=== PATIENT | male | born 1965 | race Caucasian/White ===

== ENCOUNTER → 2016-05-22 | Outpatient (CLI) | payer OTHER ==
[~2016-05-22] MED LIST: AMLODIPINE BESY10 MG PO; AMOXIL500 MG PO; ANTIBIOTIC O500 U/GM TP; ASPIR LOW81 MG PO; AVELOX400 MG PO; BACTRIM DS 8001 TA1 PO; BUMETANIDE1 MG PO; BUPROPION75 MG PO; CEFADROXIL500 MG PO; CIPRO; CIPRO500 MG PO; CYCLOPHOSPHAMID50 M1 PO; DIAZEPAM5 MG; EC NAPROSYN500 MG PO; HYDROCODONE BIT1 T11 PO; KEFLEX500 M1 PO; KEFLEX500 MG PO; LEVAQUIN750 M1 PO; LOPID600 M1 PO; MOTRIN800 MG PO; NAPROSYN500 MG PO; NAPROXEN500 MG PO; NKHM; NKHM PO; NORFLEX100 MG PO; OXYCODONE/APAP1 TA8 PO; PERCOCET 325 MG1 TA2 PO; PERCOCET 325 MG1 TA7; PERCOCET 325 MG1 TA7 PO; PREDNICOT20 MG PO; PREDNISONE10 MG PO; PROVENTIL0.09 MG/A1 INH; Percocet 325 MG1 TAB PO; QVAR0.08 MG/AC INH; SODIUM BICARBO650 MG PO; VICODIN 5/500 505 MG PO; VICODIN 500 MG-1 TAB PO; VICODIN ES 7501 TA1 PO; VITAMIN C500 M4 PO; ZOLOFT100 MG PO
[2016-05-22 10:15] VITALS: BP 132/71
[2016-05-22 10:32] LABS: BASO % 0.6 % (0.0-1.0); EOS # 0.3 10*3/uL (0.0-0.4); EOS % 5.9 % (1.0-4.0); HEMOGLOBIN 10.5 g/dl (14.0-18.0); LYMPH # 1.5 10*3/uL (1.3-4.4); LYMPH % 28.7 % (27.0-41.0); MEAN CELL VOLUME 90.9 fl (80.0-94.0); MEAN CORPUSCULAR HGB 29.8 pg (27.0-31.0); MEAN CORPUSCULAR HGB CONC 32.8 g/dl (33.0-37.0); MEAN PLATELET VOLUME 9.8 fl (9.6-12.3); MONO # 0.4 10*3/uL (0.1-1.0); MONO % 8.2 % (3.0-9.0); NEUT # 2.9 10*3/uL (2.3-7.9); PLATELET COUNT AUTOMATED 157 10*3/uL (130-400); RED BLOOD COUNT 3.52 10*6/uL (4.50-5.90); RED CELL DISTRI WIDTH 14.7 % (0-14.5); WHITE BLOOD COUNT 5.2 10*3/uL (4.8-10.8)
[2016-05-22 10:57] LABS: PHOSPHOROUS 6.6 mg/dL (2.5-4.9); URIC ACID 5.5 mg/dL (3.5-7.2)
== END | disposition home or self-care (01) ==
LOC: LAB 10:07
PROVIDERS: Internal Medicine Nephrology
DX: I12.9 Hypertensive chronic kidney disease with stage 1 through stage 4 chronic kidney disease, or unspecified chronic kidney disease (principal); N18.5 Chronic kidney disease, stage 5; D64.9 Anemia, unspecified; N17.9 Acute kidney failure, unspecified

== ENCOUNTER → 2016-10-26 | Outpatient (CLI) | payer MEDICARE, MEDICAID | END | disposition home or self-care (01) | LOC: CT 10-05 11:00 | DX: J98.11 Atelectasis (principal); R91.1 Solitary pulmonary nodule; I10 Essential (primary) hypertension; Z87.891 Personal history of nicotine dependence ==

== ENCOUNTER 2017-01-11 09:22 | Inpatient (IN) | payer MEDICARE, MEDICAID ==
[~2017-01-11] VITALS: Ht 195.5 cm; Wt 118.4 kg
[2017-01-11 09:25] VITALS: BP 156/80
[2017-01-11 09:49] LABS: BASO % 0.4 % (0.0-1.0); EOS # 0.3 10*3/uL (0.0-0.4); EOS % 4.8 % (1.0-4.0); HEMATOCRIT 35.1 % (42.0-52.0); HEMOGLOBIN 11.3 g/dl (14.0-18.0); LYMPH # 1.5 10*3/uL (1.3-4.4); LYMPH % 22.8 % (27.0-41.0); MEAN CORPUSCULAR HGB 31.2 pg (27.0-31.0); MEAN CORPUSCULAR HGB CONC 32.2 g/dl (33.0-37.0); MONO # 0.6 10*3/uL (0.1-1.0); MONO % 8.5 % (3.0-9.0); NEUT # 4.2 10*3/uL (2.3-7.9); NEUT % 63.1 % (47.0-73.0); PLATELET COUNT AUTOMATED 192 10*3/uL (130-400); RED BLOOD COUNT 3.62 10*6/uL (4.50-5.90); RED CELL DISTRI WIDTH 14.9 % (0-14.5); WHITE BLOOD COUNT 6.7 10*3/uL (4.8-10.8)
[2017-01-11 09:51] LABS: ABG HCO3 17.2 mmol/l (22-26); ABG O2 SATURATION 83.2 % (95-97); ARTERIAL BLOOD GAS PCO2 39.4 mmHg (35-45); ARTERIAL BLOOD GAS PH 7.261 (7.35-7.45); ARTERIAL BLOOD GAS PO2 53.5 mmHg (80-90)
[2017-01-11 09:53] LABS: ABG BASE EXCESS -8.9 mmol/L (-2.0-2.0)
[2017-01-11 10:06] LABS: ALBUMIN 3.5 gm/dl (3.1-4.5); ALKALINE PHOSPHATASE 86 U/L (45-117); BUN 77 mg/dl (7-24); CHLORIDE 100 mmol/L (98-107); CKMB 2.4 ng/ml (0.5-3.6); CPK 149 U/L (39-308); LIPASE 165 U/L (73-393); MAGNESIUM 2.8 mg/dL (1.5-2.1); SGOT/AST 11 IU/L (3-35); SGPT/ALT 12 U/L (12-78); SODIUM 138 mmol/L (136-145); TOTAL PROTEIN 8.7 gm/dL (6.4-8.2)
[2017-01-11 10:08] LABS: ETHYL ALCOHOL < 3.0 mg/dl (<3)
[2017-01-11 10:10] LABS: POTASSIUM 6.1 mmol/L (3.5-5.1)
--- NOTE | 2017-01-11 10:24 | NUR ---
PT UNWILLING TO TRY TO PROVIDE URINE SPECIMEN. REFUSES CATHETER.
--- NOTE | 2017-01-11 10:25 | NUR ---
PT APPEARS MORE ALERT AND ORIENTED NOW. AFTER SEEING PT'S ABG RESULTS, I REASSESSED HIS POX WHICH WAS 96% ON ROOM AIR ON ARIVAL AND IT IS NOW 79%. PT IS AWAKE AND THE WAVE-FORM IS PERFECT. POX RISES AND DROPS DRAMATICALLY WHILE I WATCH. ALSO, PT'S LEFT ARM IV SITE WAS SARTED BY EMS PROXIMAL TO HIS DIALYSIS SHUNT. HAS MENTIONED SHE MIGHT ORDER A CHEST CT FOR P.E. BUT PT'S RIGHT ARM IS SCARRED IN SUCH A WAY NO IV SITE MAY BE INSERTED WHICH WOULD BE EFFECTIVE FOR P.E. CT.
--- NOTE | 2017-01-11 10:25 | NUR ---
PT'S IV SITE RIGHT ARM IS PATENT AND FLUSHED EASLY WITH 30CC NSS TO TEST BECAUSE PT EXPRESSES TENDERNESS AND JUMPS WHEN THIS SITE IS ACCESSED. SITE IS ASYMPTOMATIC.
[2017-01-11 10:26] LABS: TROPONIN I 0.081 ng/ml (<0.045)
--- NOTE | 2017-01-11 10:45 | NUR ---
PT TO RADIOLOGY.
--- NOTE | 2017-01-11 11:19 | NUR ---
PT REMAINS IN RADIOLOGY.
--- NOTE | 2017-01-11 11:40 | NUR ---
PT REMAINS IN RADIOLOGY.
--- NOTE | 2017-01-11 11:52 | NUR ---
PT RETURNS TO ROOM. NO CHANGE IN CONDITION.
--- NOTE | 2017-01-11 11:58 | NUR ---
PT CONTINUES TO REFUSE CATH SPECIMEN AND DOESN'T NEED TO URINATE.
[2017-01-11 11:59] VITALS: BP 140/82
--- NOTE | 2017-01-11 12:33 | NUR ---
LEVAQUIN INFUSING AT TIME OF ADMISSION
--- NOTE | 2017-01-11 13:47 | NUR ---
A 51, admitted to ICCU, under the services of JAYLIN Warren DO with a diagnosis of SEIZURE/RESP FAILURE. Chief complaint is GRAND MAL SEIZURE WHILE DRIVING. Patient arrived via ambulatory from ER. Monitor applied. Initial assessment completed. Vital signs taken and recorded. JAYLIN WARREN DO notified of admission to the unit. Orders received. See assessment for past medical history, medications and allergies. Patient and/or family oriented to unit. [facility] ICCU visitation policy reviewed. Clothing/patient valuable form completed. YVETTE ATKINSON
[2017-01-11 13:48] LABS: BILIRUBIN NEGATIVE (NEGATIVE); BLOOD 3+ (NEGATIVE); CLARITY CLEAR (CLEAR); COLOR YELLOW (YELLOW); GLUCOSE 1+ (NEGATIVE); KETONE NEGATIVE (NEGATIVE); LEUKO ESTERASE NEGATIVE (NEGATIVE); NITRITE NEGATIVE (NEGATIVE); PH 7.5 (5.0-9.0); UROBILINOGEN 0.2 E.U./dl (0.2-1.0)
[2017-01-11 13:55] LABS: URINE AMPHETAMINES < 1000 (1000ng/ml); URINE BARBITURATES < 200 (200ng/ml); URINE BENZODIAZEPINES < 200 (200ng/ml); URINE CANNABINOIDS (THC) < 50 (50ng/ml); URINE COCAINE > 300 (300ng/ml); URINE METHADONE < 300 (300ng/ml); URINE OPIATES < 300 (300ng/ml)
[2017-01-11 14:02] LABS: URINE PHENCYCLIDINE < 25 (25ng/ml)
[2017-01-11] MEDS ORDERED: DIOVAN160 M2 PO (14:28)
[2017-01-11] MEDS ORDERED: PERCOCET 10-321 EACH PO (14:29)
[2017-01-11] MEDS ORDERED: CALCIUM ACETAT667 MG PO (14:29)
--- NOTE | 2017-01-11 14:31 | NUR ---
MEDS RECONCILED WITH DIRECT CONVERSATION WITH ELVIE CORONADO PHARMACIST
[2017-01-11 14:35] VITALS: BP 172/92
[2017-01-11 14:39] VITALS: BP 160/90
--- NOTE | 2017-01-11 15:20 | NUR ---
DR HERNANDEZ UPDATED ON MEDS, UDS AND NEED TO WAIT UNTIL AFTER DIALYSIS FOR VANCO INFUSION
[2017-01-11 16:00] VITALS: BP 160/90
--- NOTE | 2017-01-11 16:21 | NUR ---
SPOKE WITH RENAL OFFICE X 3, THEY ASSURE ME THAT DR GALLEGOS HAS RECIEVED MESSAGE [facility] CONSULT AND FOR [facility] TO CONTACT HIM DIRECTLY FOR ORDERS, MESSAGE RELAYED TO [facility]
--- NOTE | 2017-01-11 17:10 | NUR ---
SPOKE WITH ADRIANNE FROM DIALYSIS, ADVISED TANOLVIA GALLEGOS HAD CALLED IN AND WANTS HER TO CALL HIM HERSELF FOR ORDERS FOR A TREATMENT TONIGHT
--- NOTE | 2017-01-11 17:44 | NUR ---
DR HERNANDEZ UPDATED ON TRO I
[2017-01-11 20:00] VITALS: BP 135/82
--- NOTE | 2017-01-11 22:23 | NUR ---
24 HR chart check completed.
--- NOTE | 2017-01-11 22:23 | NUR ---
24 HR chart check completed.
--- NOTE | 2017-01-11 22:26 | NUR ---
MANUAL BARCODE USED FOR PM MEDS DIALYSIS EQUIP,EMT IS CLUTTERED IN ROOM AND I CAN NOT REQCH THE PT TO SCAN HIS BARCODE
--- NOTE | 2017-01-11 22:27 | NUR ---
PER PT HE IS NOT ON FLUID RESTRICTIONS
--- NOTE | 2017-01-11 22:59 | NUR ---
DR CORREIA UPDATED ON ELEVATED TRO I
[2017-01-12] VITALS: BP 145/65
[2017-01-12 04:00] VITALS: BP 143/77
[2017-01-12 05:32] LABS: BASO % 0.5 % (0.0-1.0); EOS # 0.2 10*3/uL (0.0-0.4); HEMOGLOBIN 9.4 g/dl (14.0-18.0); LYMPH # 1.1 10*3/uL (1.3-4.4); LYMPH % 28.1 % (27.0-41.0); MEAN CORPUSCULAR HGB 31.1 pg (27.0-31.0); MEAN CORPUSCULAR HGB CONC 32.8 g/dl (33.0-37.0); MEAN PLATELET VOLUME 9.4 fl (9.6-12.3); MONO # 0.4 10*3/uL (0.1-1.0); MONO % 10.1 % (3.0-9.0); NEUT # 2.3 10*3/uL (2.3-7.9); PLATELET COUNT AUTOMATED 152 10*3/uL (130-400); RED BLOOD COUNT 3.02 10*6/uL (4.50-5.90); RED CELL DISTRI WIDTH 14.6 % (0-14.5)
[2017-01-12 05:35] LABS: HEMATOCRIT 28.7 % (42.0-52.0)
[2017-01-12 05:45] LABS: ALBUMIN 2.8 gm/dl (3.1-4.5); CREATININE 8.28 mg/dL (0.70-1.30); FREE T4 1.03 ng/dl (0.76-1.46); MAGNESIUM 2.3 mg/dL (1.5-2.1); PHOSPHOROUS 6.9 mg/dL (2.5-4.9)
[2017-01-12 05:49] LABS: THYROID STIM HORMONE (HS) 1.78 uIU/ml (0.358-4.75)
[2017-01-12 05:52] LABS: POTASSIUM 4.5 mmol/L (3.5-5.1)
[2017-01-12 05:53] LABS: TROPONIN I 0.14 ng/ml (<0.045)
--- NOTE | 2017-01-12 05:54 | NUR ---
DR. RIOJAS NOTIFIED OF CRITICAL TROPONIN. NO NEW ORDERS RECEIVED.
[2017-01-12 07:36] LABS: VITAMIN D, 25-HYDROXY 30.3 ng/mL (30-100)
[2017-01-12 07:43] VITALS: BP 137/74
--- NOTE | 2017-01-12 07:48 | NUR ---
Trung at [facility] was contacted for updated med list.
--- NOTE | 2017-01-12 08:40 | NUR ---
Awakened for VS and breakfast. took breakfast well and then back to sleep. I spoke w/ Trung at the dislysis clinic and he stated that Dr. Roy wanted to see pt. prior to Dialysis this AM. Awaiting her arrival.
[2017-01-12] MEDS ORDERED: ASPIRIN ADULT L81 M2 PO (09:55)
[2017-01-12] MEDS ORDERED: FENOFIBRATE54 MG PO (09:56)
[2017-01-12] MEDS ORDERED: LOPID600 M1 PO (10:04)
[2017-01-12] MEDS ORDERED: VITAMIN C500 M4 PO (10:06)
[2017-01-12] MEDS ORDERED: RENAL-VITE TAB0.8 MG PO (10:07)
[2017-01-12] MEDS ORDERED: ARANESP40 MCG/1 M IV (10:09)
[2017-01-12] MEDS ORDERED: SILDENAFIL20 M1 PO (10:12)
--- NOTE | 2017-01-12 10:14 | NUR ---
Med list is updated per dialysis list provided. however pt. is known to be non-compliant .
--- NOTE | 2017-01-12 10:48 | NUR ---
cyber ops planner in to see patient for discharge assessment. Currently with Dialysis, will check back later.
[2017-01-12 11:55] VITALS: BP 156/95
--- NOTE | 2017-01-12 15:43 | NUR ---
IV LA dc'd post dialysis re-start to . then transferred to [facility] via w/c w/ belongings. Report to Kaia.
[2017-01-12 16:00] VITALS: BP 155/53
[2017-01-12 20:00] VITALS: BP 160/94
[2017-01-13] VITALS: BP 157/70
--- NOTE | 2017-01-13 01:35 | NUR ---
24 HR chart check completed.
[2017-01-13 06:22] LABS: BASO % 0.5 % (0.0-1.0); EOS # 0.2 10*3/uL (0.0-0.4); EOS % 4.3 % (1.0-4.0); HEMATOCRIT 27.9 % (42.0-52.0); LYMPH # 1.3 10*3/uL (1.3-4.4); LYMPH % 33.1 % (27.0-41.0); MEAN CELL VOLUME 96.2 fl (80.0-94.0); MEAN CORPUSCULAR HGB CONC 32.3 g/dl (33.0-37.0); MEAN PLATELET VOLUME 9.6 fl (9.6-12.3); MONO # 0.6 10*3/uL (0.1-1.0); MONO % 14.1 % (3.0-9.0); NEUT # 1.9 10*3/uL (2.3-7.9); NEUT % 47.2 % (47.0-73.0); PLATELET COUNT AUTOMATED 137 10*3/uL (130-400); RED CELL DISTRI WIDTH 14.5 % (0-14.5)
[2017-01-13 06:47] LABS: ALBUMIN 2.7 gm/dl (3.1-4.5); CKMB 1.3 ng/ml (0.5-3.6); CREATININE 7.38 mg/dL (0.70-1.30); PHOSPHOROUS 5.7 mg/dL (2.5-4.9); POTASSIUM 4.8 mmol/L (3.5-5.1)
[2017-01-13 08:00] VITALS: BP 164/86
--- NOTE | 2017-01-13 09:24 | NUR ---
PT TOOK HEART MONITOR OFF AND IV OUT. HE STATED HE IS LEAVING AND HE WENT TO GET IN THE SHOWER AT THIS TIME. NOTIFIED DR ESCALANTE
[2017-01-13] MEDS ORDERED: DOXYCYCLINE MO100 M1 PO (11:18)
--- NOTE | 2017-01-13 11:42 | NUR ---
PT DISCHARGED AT THIS TIME. REMOVED IV AND PLACED PRESSURE DRESSING. VERBALIZED UNDERSTANDING OF DISCHARGE INSTRUCTIONS. HEART MONITOR RETURNED TO FLOOR.
== END 2017-01-13 11:42 | disposition home or self-care (01) | DRG 871 ==
LOC: ED 09:22 → EDHOLD 12:20 → ICCU 12:20 → 4E 01-12 15:23
PROVIDERS: Family Medicine; Internal Medicine; Internal Medicine Hospice and Palliative Medicine; ADMIT Internal Medicine
PROC: 5A1D60Z (ICD-10-PCS; principal; 2017-01-12)
DX: A41.9 Sepsis, unspecified organism (principal); N18.6 End stage renal disease; J96.01 Acute respiratory failure with hypoxia; E87.2 Acidosis; J18.9 Pneumonia, unspecified organism; I12.0 Hypertensive chronic kidney disease with stage 5 chronic kidney disease or end stage renal disease; E44.0 Moderate protein-calorie malnutrition; F17.200 Nicotine dependence, unspecified, uncomplicated; F12.10 Cannabis abuse, uncomplicated; G40.409 Other generalized epilepsy and epileptic syndromes, not intractable, without status epilepticus; E87.5 Hyperkalemia; E83.41 Hypermagnesemia; E83.51 Hypocalcemia; F14.10 Cocaine abuse, uncomplicated; D63.1 Anemia in chronic kidney disease; J40 Bronchitis, not specified as acute or chronic; E83.39 Other disorders of phosphorus metabolism; Z91.19 Patient's noncompliance with other medical treatment and regimen; Z82.49 Family history of ischemic heart disease and other diseases of the circulatory system; Z71.6 Tobacco abuse counseling; Z79.82 Long term (current) use of aspirin; Z79.1 Long term (current) use of non-steroidal anti-inflammatories (NSAID); Z79.899 Other long term (current) drug therapy; Z99.2 Dependence on renal dialysis; Z68.30 Body mass index [BMI] 30.0-30.9, adult

== ENCOUNTER 2017-02-15 08:22 | Inpatient (IN) | payer MEDICARE, MEDICAID ==
[2017-02-15] VITALS (7 sets, daily range): BP systolic 126–169; BP diastolic 69–86
[~2017-02-15] VITALS: Ht 193 cm; Wt 114.1 kg
[~2017-02-15 08:22] MED LIST changes: +ARANESP40 MCG/1 M IV; +ASPIRIN ADULT L81 M2 PO; +CALCIUM ACETAT667 MG PO; +DIOVAN160 M2 PO; +DOXYCYCLINE MO100 M1 PO; +FENOFIBRATE54 MG PO; +PERCOCET 10-321 EACH PO; +RENAL-VITE TAB0.8 MG PO; +SILDENAFIL20 M1 PO
[2017-02-15] MEDS ORDERED: SILDENAFIL20 M1 PO (08:38)
[2017-02-15] MEDS ORDERED: AMLODIPINE BESYL5 MG PO (08:38)
[2017-02-15 08:52] LABS: BASO % 0.6 % (0.0-1.0); EOS # 0.2 10*3/uL (0.0-0.4); EOS % 3.1 % (1.0-4.0); HEMATOCRIT 33.6 % (42.0-52.0); HEMOGLOBIN 10.8 g/dl (14.0-18.0); LYMPH # 1.2 10*3/uL (1.3-4.4); LYMPH % 17.4 % (27.0-41.0); MEAN CELL VOLUME 99.7 fl (80.0-94.0); MEAN CORPUSCULAR HGB CONC 32.1 g/dl (33.0-37.0); MEAN PLATELET VOLUME 9.3 fl (9.6-12.3); MONO # 0.6 10*3/uL (0.1-1.0); MONO % 7.8 % (3.0-9.0); NEUT % 70.7 % (47.0-73.0); PLATELET COUNT AUTOMATED 194 10*3/uL (130-400); RED BLOOD COUNT 3.37 10*6/uL (4.50-5.90); WHITE BLOOD COUNT 7.1 10*3/uL (4.8-10.8)
[2017-02-15 09:01] LABS: ACT PARTIAL THROMBO TIME 24.7 SECONDS (20.8-31.5)
[2017-02-15 09:16] LABS: BILIRUBIN NEGATIVE (NEGATIVE); BLOOD 2+ (NEGATIVE); CLARITY CLEAR (CLEAR); COLOR YELLOW (YELLOW); GLUCOSE 1+ (NEGATIVE); KETONE NEGATIVE (NEGATIVE); LEUKO ESTERASE NEGATIVE (NEGATIVE); NITRITE NEGATIVE (NEGATIVE); UROBILINOGEN 0.2 E.U./dl (0.2-1.0)
[2017-02-15 09:20] LABS: ALBUMIN 3.3 gm/dl (3.1-4.5); CREATININE 11.3 mg/dL (0.70-1.30); MAGNESIUM 2.5 mg/dL (1.5-2.1); TOTAL PROTEIN 8.3 gm/dL (6.4-8.2)
[2017-02-15 09:24] LABS: URINE AMPHETAMINES < 1000 (1000ng/ml); URINE BARBITURATES < 200 (200ng/ml); URINE BENZODIAZEPINES < 200 (200ng/ml); URINE CANNABINOIDS (THC) < 50 (50ng/ml); URINE COCAINE > 300 (300ng/ml); URINE METHADONE < 300 (300ng/ml); URINE OPIATES < 300 (300ng/ml)
[2017-02-15 09:27] LABS: POTASSIUM 6.6 mmol/L (3.5-5.1); TROPONIN I 0.088 ng/ml (<0.045)
[2017-02-15 09:28] LABS: URINE PHENCYCLIDINE < 25 (25ng/ml)
[2017-02-15 15:46] LABS: BASO # 0.1 10*3/uL (0.0-0.1); BASO % 0.9 % (0.0-1.0); EOS # 0.2 10*3/uL (0.0-0.4); EOS % 2.7 % (1.0-4.0); HEMATOCRIT 35.5 % (42.0-52.0); HEMOGLOBIN 11.3 g/dl (14.0-18.0); LYMPH # 1.3 10*3/uL (1.3-4.4); LYMPH % 24.2 % (27.0-41.0); MEAN CELL VOLUME 100.6 fl (80.0-94.0); MEAN CORPUSCULAR HGB CONC 31.8 g/dl (33.0-37.0); MEAN PLATELET VOLUME 9.3 fl (9.6-12.3); MONO # 0.5 10*3/uL (0.1-1.0); NEUT # 3.5 10*3/uL (2.3-7.9); NEUT % 62.8 % (47.0-73.0); PLATELET COUNT AUTOMATED 190 10*3/uL (130-400); RED BLOOD COUNT 3.53 10*6/uL (4.50-5.90); RED CELL DISTRI WIDTH 14.9 % (0-14.5); WHITE BLOOD COUNT 5.5 10*3/uL (4.8-10.8)
[2017-02-15 16:02] LABS: ALBUMIN 3.4 gm/dl (3.1-4.5); CREATININE 11.6 mg/dL (0.70-1.30); PHOSPHOROUS 6.6 mg/dL (2.5-4.9); POTASSIUM 5.9 mmol/L (3.5-5.1)
[2017-02-15 16:59] LABS: URINE AMPHETAMINES < 1000 (1000ng/ml); URINE BARBITURATES < 200 (200ng/ml); URINE BENZODIAZEPINES < 200 (200ng/ml); URINE CANNABINOIDS (THC) < 50 (50ng/ml); URINE COCAINE > 300 (300ng/ml); URINE METHADONE < 300 (300ng/ml); URINE OPIATES < 300 (300ng/ml)
[2017-02-15 17:01] LABS: URINE PHENCYCLIDINE < 25 (25ng/ml)
[2017-02-15 17:55] LABS: BASO % 0.3 % (0.0-1.0); EOS # 0.2 10*3/uL (0.0-0.4); EOS % 2.5 % (1.0-4.0); HEMATOCRIT 31.9 % (42.0-52.0); HEMOGLOBIN 10.3 g/dl (14.0-18.0); LYMPH % 16.9 % (27.0-41.0); MEAN CELL VOLUME 98.8 fl (80.0-94.0); MEAN CORPUSCULAR HGB 31.9 pg (27.0-31.0); MEAN CORPUSCULAR HGB CONC 32.3 g/dl (33.0-37.0); MEAN PLATELET VOLUME 9.4 fl (9.6-12.3); MONO # 0.5 10*3/uL (0.1-1.0); MONO % 8.1 % (3.0-9.0); NEUT # 4.3 10*3/uL (2.3-7.9); NEUT % 71.7 % (47.0-73.0); PLATELET COUNT AUTOMATED 174 10*3/uL (130-400); RED BLOOD COUNT 3.23 10*6/uL (4.50-5.90); RED CELL DISTRI WIDTH 14.9 % (0-14.5)
[2017-02-15 18:11] LABS: CREATININE 11.9 mg/dL (0.70-1.30)
[2017-02-15 18:20] LABS: POTASSIUM 6.3 mmol/L (3.5-5.1); TROPONIN I 0.096 ng/ml (<0.045)
[2017-02-15 23:24] LABS: CREATININE 7.59 mg/dL (0.70-1.30)
[2017-02-15 23:26] LABS: POTASSIUM 3.8 mmol/L (3.5-5.1)
[2017-02-16] VITALS: BP 156/84
[2017-02-16 04:00] VITALS: BP 118/55
[2017-02-16 05:40] LABS: CREATININE 8.33 mg/dL (0.70-1.30); MAGNESIUM 2.4 mg/dL (1.5-2.1); POTASSIUM 4.7 mmol/L (3.5-5.1); TOTAL PROTEIN 7.6 gm/dL (6.4-8.2)
[2017-02-16 05:41] LABS: FREE T4 0.95 ng/dl (0.76-1.46)
[2017-02-16 05:46] LABS: THYROID STIM HORMONE (HS) 1.74 uIU/ml (0.358-4.75)
[2017-02-16 05:58] LABS: BASO % 0.8 % (0.0-1.0); EOS # 0.2 10*3/uL (0.0-0.4); EOS % 3.8 % (1.0-4.0); HEMATOCRIT 32.3 % (42.0-52.0); HEMOGLOBIN 10.5 g/dl (14.0-18.0); LYMPH # 1.6 10*3/uL (1.3-4.4); LYMPH % 31.5 % (27.0-41.0); MEAN CELL VOLUME 100.3 fl (80.0-94.0); MEAN CORPUSCULAR HGB 32.6 pg (27.0-31.0); MEAN CORPUSCULAR HGB CONC 32.5 g/dl (33.0-37.0); MEAN PLATELET VOLUME 9.4 fl (9.6-12.3); MONO # 0.6 10*3/uL (0.1-1.0); MONO % 10.9 % (3.0-9.0); NEUT # 2.7 10*3/uL (2.3-7.9); NEUT % 52.6 % (47.0-73.0); PLATELET COUNT AUTOMATED 175 10*3/uL (130-400); RED BLOOD COUNT 3.22 10*6/uL (4.50-5.90); RED CELL DISTRI WIDTH 14.6 % (0-14.5)
[2017-02-16 06:17] LABS: ACT PARTIAL THROMBO TIME 24.3 SECONDS (20.8-31.5)
[2017-02-16 08:00] VITALS: BP 150/87
== END 2017-02-16 09:26 | disposition home or self-care (01) | DRG 70 ==
LOC: ED 08:22 → EDHOLD 10:21 → 5E 10:21 → ICCU 16:19
PROVIDERS: Emergency Medicine; Family Medicine Adult Medicine; Internal Medicine; Internal Medicine Nephrology; ADMIT Internal Medicine
PROC: 5A1D00Z (ICD-10-PCS; principal; 2017-02-15)
DX: G93.41 Metabolic encephalopathy (principal); N18.6 End stage renal disease; I13.2 Hypertensive heart and chronic kidney disease with heart failure and with stage 5 chronic kidney disease, or end stage renal disease; E87.2 Acidosis; R56.9 Unspecified convulsions; E83.41 Hypermagnesemia; D63.1 Anemia in chronic kidney disease; S00.03XA Contusion of scalp, initial encounter; E87.5 Hyperkalemia; F17.210 Nicotine dependence, cigarettes, uncomplicated; I50.9 Heart failure, unspecified; W18.39XA Other fall on same level, initial encounter; F14.10 Cocaine abuse, uncomplicated; Z99.2 Dependence on renal dialysis; Z82.3 Family history of stroke; Z83.3 Family history of diabetes mellitus; Z82.49 Family history of ischemic heart disease and other diseases of the circulatory system; Z79.82 Long term (current) use of aspirin; Z79.899 Other long term (current) drug therapy; Z71.6 Tobacco abuse counseling; Z91.15 Patient's noncompliance with renal dialysis; Y93.89 Activity, other specified; Y92.89 Other specified places as the place of occurrence of the external cause; Y99.8 Other external cause status

== ENCOUNTER 2017-02-18 18:46 | Emergency (ER) | payer MEDICARE, MEDICAID ==
[~2017-02-18] VITALS: Ht 195.5 cm; Wt 117.9 kg
[~2017-02-18 18:46] MED LIST changes: +AMLODIPINE BESYL5 MG PO
[2017-02-18 19:52] LABS: BASO % 0.5 % (0.0-1.0); EOS # 0.3 10*3/uL (0.0-0.4); EOS % 4.3 % (1.0-4.0); HEMATOCRIT 30.7 % (42.0-52.0); HEMOGLOBIN 10.1 g/dl (14.0-18.0); LYMPH # 1.2 10*3/uL (1.3-4.4); LYMPH % 19.3 % (27.0-41.0); MEAN CELL VOLUME 98.7 fl (80.0-94.0); MEAN CORPUSCULAR HGB 32.5 pg (27.0-31.0); MEAN CORPUSCULAR HGB CONC 32.9 g/dl (33.0-37.0); MEAN PLATELET VOLUME 9.5 fl (9.6-12.3); MONO # 0.6 10*3/uL (0.1-1.0); MONO % 9.3 % (3.0-9.0); NEUT # 4.1 10*3/uL (2.3-7.9); PLATELET COUNT AUTOMATED 162 10*3/uL (130-400); RED BLOOD COUNT 3.11 10*6/uL (4.50-5.90); RED CELL DISTRI WIDTH 14.5 % (0-14.5); WHITE BLOOD COUNT 6.3 10*3/uL (4.8-10.8)
[2017-02-18 20:08] LABS: ALBUMIN 3.3 gm/dl (3.1-4.5); CREATININE 9.61 mg/dL (0.70-1.30); MAGNESIUM 2.1 mg/dL (1.5-2.1); POTASSIUM 4.9 mmol/L (3.5-5.1); TOTAL PROTEIN 8.3 gm/dL (6.4-8.2)
[2017-02-18 21:04] LABS: BILIRUBIN NEGATIVE (NEGATIVE); BLOOD TRACE-LYSED (NEGATIVE); CLARITY CLEAR (CLEAR); COLOR YELLOW (YELLOW); GLUCOSE 1+ (NEGATIVE); KETONE NEGATIVE (NEGATIVE); LEUKO ESTERASE NEGATIVE (NEGATIVE); NITRITE NEGATIVE (NEGATIVE); PH 8.5 (5.0-9.0); SPECIFIC GRAVITY 1.015 (1.005-1.030); UROBILINOGEN 0.2 E.U./dl (0.2-1.0)
[2017-02-18 21:11] LABS: RBC 0-2 rbc/hpf (0-2)
[2017-02-18 21:12] LABS: MUCOUS TRACE
[2017-02-18 21:18] LABS: URINE AMPHETAMINES < 1000 (1000ng/ml); URINE BARBITURATES < 200 (200ng/ml); URINE BENZODIAZEPINES < 200 (200ng/ml); URINE CANNABINOIDS (THC) < 50 (50ng/ml); URINE COCAINE > 300 (300ng/ml); URINE METHADONE < 300 (300ng/ml); URINE OPIATES < 300 (300ng/ml)
[2017-02-18 21:22] LABS: URINE PHENCYCLIDINE < 25 (25ng/ml)
[2017-02-18] MEDS ORDERED: KEFLEX500 M1 PO (22:28)
== END 2017-02-18 23:21 | disposition home or self-care (01) ==
LOC: ED 18:46
PROVIDERS: Emergency Medicine Emergency Medical Services
DX: S20.211A Contusion of right front wall of thorax, initial encounter (principal); S00.81XA Abrasion of other part of head, initial encounter; L08.9 Local infection of the skin and subcutaneous tissue, unspecified; F17.200 Nicotine dependence, unspecified, uncomplicated; F12.10 Cannabis abuse, uncomplicated; F14.10 Cocaine abuse, uncomplicated; I12.0 Hypertensive chronic kidney disease with stage 5 chronic kidney disease or end stage renal disease; N18.5 Chronic kidney disease, stage 5; D63.1 Anemia in chronic kidney disease; Z79.899 Other long term (current) drug therapy; Z99.2 Dependence on renal dialysis; Z79.82 Long term (current) use of aspirin; W01.198A Fall on same level from slipping, tripping and stumbling with subsequent striking against other object, initial encounter; Y93.89 Activity, other specified; Y92.89 Other specified places as the place of occurrence of the external cause; Y99.9 Unspecified external cause status

== ENCOUNTER 2017-03-13 08:42 | Inpatient (IN) | payer MEDICARE ==
[~2017-03-13] VITALS: Ht 195.5 cm; Wt 112.5 kg
[2017-03-13 08:54] VITALS: BP 170/100
[2017-03-13 09:46] LABS: BASO # 0.1 10*3/uL (0.0-0.1); EOS # 0.3 10*3/uL (0.0-0.4); EOS % 4.8 % (1.0-4.0); HEMATOCRIT 36.8 % (42.0-52.0); HEMOGLOBIN 12.1 g/dl (14.0-18.0); LYMPH % 33.9 % (27.0-41.0); MEAN CELL VOLUME 95.8 fl (80.0-94.0); MEAN CORPUSCULAR HGB 31.5 pg (27.0-31.0); MEAN CORPUSCULAR HGB CONC 32.9 g/dl (33.0-37.0); MEAN PLATELET VOLUME 9.7 fl (9.6-12.3); MONO # 0.5 10*3/uL (0.1-1.0); PLATELET COUNT AUTOMATED 152 10*3/uL (130-400); RED BLOOD COUNT 3.84 10*6/uL (4.50-5.90); RED CELL DISTRI WIDTH 13.3 % (0-14.5); WHITE BLOOD COUNT 5.9 10*3/uL (4.8-10.8)
[2017-03-13 10:02] LABS: ALBUMIN 3.4 gm/dl (3.1-4.5); CREATININE 7.96 mg/dL (0.70-1.30); POTASSIUM 5.9 mmol/L (3.5-5.1)
[2017-03-13 10:04] LABS: TROPONIN I 0.072 ng/ml (<0.045)
[2017-03-13 10:27] VITALS: BP 163/103
--- NOTE | 2017-03-13 11:01 | NUR ---
INPATIENT BED ASSIGNMENT HAS BEEN MADE. FLOOR STATES THEY ARE DISCHARGING PT FROM THAT ROOM NOW AND THEY WILL CALL WHEN ROOM IS CLEAN. AXEL PTAEL RN
[2017-03-13 11:12] VITALS: BP 164/95
--- NOTE | 2017-03-13 11:49 | NUR ---
WAITING FOR INPATIENT BED TO BE CLEANED. AXEL PATEL RN
--- NOTE | 2017-03-13 12:45 | NUR ---
A 51, admitted to , under the services of IVANIA Sosa DO with a diagnosis of CHEST PAIN AND HYPERKALEMIA. Chief complaint is CHEST PAIN. Patient arrived via wheel chair from ER. Monitor applied. Initial assessment completed. Vital signs taken and recorded. IVANIA SOSA DO notified of admission to the unit. Orders received. See assessment for past medical history, medications and allergies. Patient and/or family oriented to unit. [facility] visitation policy reviewed. Clothing/patient valuable form completed. JACLYN LIGHT
--- NOTE | 2017-03-13 12:49 | NUR ---
NOTIFIED DR BEAN OF CRITICAL TROPONIN OF 0.063, NO NEW ORDERS.
[2017-03-13 12:53] VITALS: BP 169/95
--- NOTE | 2017-03-13 13:01 | NUR ---
NOTIFIED DR OTT OF NEW CONSULT FOR HYPERKALEMIA, VIA RAPID OUTSOLE STITCHER.
[2017-03-13] MEDS ORDERED: DEPAKOTE250 MG PO (14:12)
[2017-03-13] MEDS ORDERED: LIPITOR40 MG PO (14:12)
[2017-03-13] MEDS ORDERED: DIOVAN160 M2 PO (14:13)
--- NOTE | 2017-03-13 14:13 | NUR ---
MED RECONCILIATION COMPLETED VIA TELEPHONE WITH [facility].
--- NOTE | 2017-03-13 14:50 | NUR ---
NORCO 5/325 MG GIVEN FOR C/O BACK PAIN, 01/28.
--- NOTE | 2017-03-13 15:27 | NUR ---
NOTIFIED DR BEAN OF CRITICAL TROPONIN OF 0.066. NO NEW ORDERS.
[2017-03-13 16:00] VITALS: BP 162/75
[2017-03-13 20:00] VITALS: BP 164/78
--- NOTE | 2017-03-13 20:13 | NUR ---
PATIENT MEDICATED WITH PRN NORCO ORDERD FOR C/O OF BILATERAL FLANK PAIN AND BACK PAIN RATED A 12/10 WITH MOVEMENT. WILL FOLLOW UP
--- NOTE | 2017-03-13 20:44 | NUR ---
NOTIFIED DR SHARMA OF WOUND ON PATIENTS KNEE. HE STATED TO NOTIFY WOUND CARE WHEN THEY COME IN.
--- NOTE | 2017-03-13 21:24 | NUR ---
EARLIER MEDICATED EFFECTIVE PER PATIENT. STATES IT WORKS FOR A LITTLE WHILE BUT DOESNT LAST LONG.
[2017-03-14] VITALS: BP 156/83
--- NOTE | 2017-03-14 01:55 | NUR ---
MEDICATED WITH PRN NORCO ORDERED FOR C/O FLANK AND BACK PAIN RATED AN 8
--- NOTE | 2017-03-14 03:00 | NUR ---
EARLIER NORCO EFFECTIVE PER PATIENT AT THIS TIME.
--- NOTE | 2017-03-14 04:24 | NUR ---
SLEEPING, NO SXS OF DISTRESS. CALL LIGHT IN REACH.
--- NOTE | 2017-03-14 05:45 | NUR ---
MEDICATED WITH PRN NORCO ORDERED FOR C/O BACK AND BILATERAL SIDE PAIN WHICH IS A 12/10 WHEN HE STARTS COUGHING.
[2017-03-14 06:27] LABS: BASO % 0.7 % (0.0-1.0); EOS # 0.3 10*3/uL (0.0-0.4); HEMATOCRIT 34.7 % (42.0-52.0); LYMPH # 1.6 10*3/uL (1.3-4.4); LYMPH % 29.6 % (27.0-41.0); MEAN CORPUSCULAR HGB 31.1 pg (27.0-31.0); MEAN CORPUSCULAR HGB CONC 31.7 g/dl (33.0-37.0); MEAN PLATELET VOLUME 9.5 fl (9.6-12.3); MONO # 0.6 10*3/uL (0.1-1.0); MONO % 10.6 % (3.0-9.0); NEUT # 2.9 10*3/uL (2.3-7.9); NEUT % 52.9 % (47.0-73.0); PLATELET COUNT AUTOMATED 147 10*3/uL (130-400); RED BLOOD COUNT 3.54 10*6/uL (4.50-5.90); RED CELL DISTRI WIDTH 13.2 % (0-14.5); WHITE BLOOD COUNT 5.5 10*3/uL (4.8-10.8)
[2017-03-14 06:35] LABS: ALBUMIN 3.3 gm/dl (3.1-4.5); CREATININE 9.24 mg/dL (0.70-1.30); MAGNESIUM 2.3 mg/dL (1.5-2.1); POTASSIUM 5.4 mmol/L (3.5-5.1)
[2017-03-14 06:37] LABS: ACT PARTIAL THROMBO TIME 27.9 SECONDS (20.8-31.5)
[2017-03-14 06:42] LABS: FREE T4 0.96 ng/dl (0.76-1.46); PHOSPHOROUS 7.2 mg/dL (2.5-4.9); TOTAL PROTEIN 7.8 gm/dL (6.4-8.2)
[2017-03-14 06:45] LABS: THYROID STIM HORMONE (HS) 6.1 uIU/ml (0.358-4.75)
--- NOTE | 2017-03-14 06:53 | NUR ---
PATIENT STATES EARLIER NORCO WAS "NOT REALLY EFFECTIVE" HIS BACK IS STILL A 12/10 WHEN HE IS COUGHING.
[2017-03-14 07:17] LABS: VITAMIN D, 25-HYDROXY 16.5 ng/mL (30-100)
[2017-03-14 08:00] VITALS: BP 187/95
[2017-03-14] MEDS ORDERED: ZITHROMAX250 MG PO (09:14)
--- NOTE | 2017-03-14 09:40 | NUR ---
Discharge instructions reviewed with patient/family. Patient receptive and verbalizes understanding. Follow-up care arranged. Written instructions given to patient/family. TAINA MANN
== END 2017-03-14 09:37 | disposition home or self-care (01) | DRG 640 ==
LOC: ED 08:42 → EDHOLD 10:17 → 5E 10:17
PROVIDERS: Hospitalist; Student in an Organized Health Care Education/Training Program; ADMIT Internal Medicine
DX: E87.5 Hyperkalemia (principal); N18.6 End stage renal disease; I12.0 Hypertensive chronic kidney disease with stage 5 chronic kidney disease or end stage renal disease; R07.89 Other chest pain; R76.8 Other specified abnormal immunological findings in serum; R07.81 Pleurodynia; R74.8 Abnormal levels of other serum enzymes; D63.1 Anemia in chronic kidney disease; F12.10 Cannabis abuse, uncomplicated; F17.200 Nicotine dependence, unspecified, uncomplicated; Z71.6 Tobacco abuse counseling; Z82.49 Family history of ischemic heart disease and other diseases of the circulatory system; Z79.82 Long term (current) use of aspirin; Z79.1 Long term (current) use of non-steroidal anti-inflammatories (NSAID); Z79.899 Other long term (current) drug therapy

== ENCOUNTER 2017-05-15 16:08 | Emergency (ER) | payer MEDICARE ==
[~2017-05-15] VITALS: Ht 195.5 cm; Wt 111.1 kg
[~2017-05-15 16:08] MED LIST changes: +DEPAKOTE250 MG PO; +LIPITOR40 MG PO; +ZITHROMAX250 MG PO
[2017-05-15] MEDS ORDERED: CEPHALEXIN500 M1 PO (17:40)
== END 2017-05-15 18:41 | disposition home or self-care (01) ==
LOC: ED 16:08
DX: L03.012 Cellulitis of left finger (principal); F17.200 Nicotine dependence, unspecified, uncomplicated; Z71.6 Tobacco abuse counseling; Z79.82 Long term (current) use of aspirin; Z79.899 Other long term (current) drug therapy

== ENCOUNTER 2017-09-26 17:26 | Inpatient (IN) | payer MEDICARE ==
[~2017-09-26] VITALS: Ht 193 cm; Wt 109.3 kg
--- NOTE | ~2017-09-26 | CON ---
[place], [place] REPORT OF CONSULTATION [id number] UNIT #: [id number] ROOM: 531 DOCTOR: TAY MOSER MD BIRTHDATE: [birth year] DOS: 09/28/2017 GASTROENDOSCOPIC REPORT HISTORY OF PRESENT ILLNESS: A 52-year-old patient who has presented with a chief complaint of multi medical issues among which has been his dyspepsia, among which has been abnormal CT scan which shows thickening of distal esophagus, there was concern if this is pathologic i.e., carcinoma, we have been asked for assessment of the patient in this regard. PAST MEDICAL HISTORY: Chronic renal failure, dialysis dependent with mild recreational drug use, abdominal aortic aneurysm history, seizure disorder, nicotine dependency, essential hypertension and ____ failure, dialysis dependency. PAST SURGICAL HISTORY: Skin graft and excisional debridements. SOCIAL HISTORY: Current smoker. Denies alcohol. Uses marijuana and cocaine use and abuse. FAMILY HISTORY: Diabetes and coronary artery disease. ALLERGIES: No known medication. PROCEDURE: Today's procedure part of investigation is panendoscopy plus photographic series and biopsy. PREMEDICATION: Versed and propofol. SCOPE: Olympus forward-viewing gastroscope Q10 video. REPORT: After putting the patient in supine position on elevation of the head of the bed, the scope was introduced thereafter, under direct visualization, I advanced the length of esophagus without difficulty. Distal esophagitis secondary to reflux was noticed. Gastric pouch was entered. Large volume of retained fluid in the gastric pouch and some food debris were suctioned out approximating 1200 mL, pyloric ring was approached the pyloric ring is benign. However is stenotic. With the scope itself was dilated to size 12. Duodenal bulb, second and third part within normal limit. Air was suctioned out. Antrum was biopsied for H. pylori and extubated, tolerated procedure well. IMPRESSION: 1. Distal esophagitis secondary to reflux. 2. Gastric retention large volume of gastric secretions and food. 3. 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 PLAN AND DISCUSSION: This patient has multiple reasons for gastroparesis and as a result of reflux, not only mechanical flow of the fluid was interrupted with benign stenotic pyloric ring. In addition, could be secondary to his general status of being on multi pain medication as well. We will see if the present [place], [place] REPORT OF CONSULTATION NAME: ORALIA MOLINA UNIT #: [id number] ROOM: 531 DOCTOR: EHSAN ELIZALDE,TAY BIRTHDATE: [birth year] management of the pyloric ring dilation is going to help him. Otherwise, we will be considering Reglan; however, he has history of seizure that prevents as proceeding. OTHER ADJUNCTIVE DIAGNOSES: As outlined. Past medical, surgical history, workup in progress. Protonix 40 mg daily is in order with elevation of the head of the bed 6 inch all time, small meals and clinical reassessment. TAY MOSER MD CM:CONSTR:REPORT OF CONSULTATION 1236 09/28/17 1333 interface
[2017-09-26 17:26] VITALS: BP 207/99
[~2017-09-26 17:26] MED LIST changes: +CEPHALEXIN500 M1 PO
[2017-09-26] MEDS ORDERED: SODIUM BICARBO650 MG PO (17:50)
[2017-09-26] MEDS ORDERED: RENA-VITE1 TAB PO (17:51)
[2017-09-26 17:52] LABS: BASO % 0.5 % (0.0-1.0); EOS # 0.1 10*3/uL (0.0-0.4); EOS % 1.4 % (1.0-4.0); HEMATOCRIT 33.7 % (42.0-52.0); HEMOGLOBIN 11.2 g/dl (14.0-18.0); LYMPH # 0.9 10*3/uL (1.3-4.4); LYMPH % 9.9 % (27.0-41.0); MEAN CELL VOLUME 98.5 fl (80.0-94.0); MEAN CORPUSCULAR HGB 32.7 pg (27.0-31.0); MEAN CORPUSCULAR HGB CONC 33.2 g/dl (33.0-37.0); MEAN PLATELET VOLUME 9.1 fl (9.6-12.3); MONO # 0.9 10*3/uL (0.1-1.0); MONO % 10.1 % (3.0-9.0); NEUT # 6.7 10*3/uL (2.3-7.9); NEUT % 77.8 % (47.0-73.0); PLATELET COUNT AUTOMATED 150 10*3/uL (130-400); RED BLOOD COUNT 3.42 10*6/uL (4.50-5.90); RED CELL DISTRI WIDTH 12.9 % (0-14.5); WHITE BLOOD COUNT 8.6 10*3/uL (4.8-10.8)
[2017-09-26 18:02] LABS: ACT PARTIAL THROMBO TIME 27.9 SECONDS (20.8-31.5)
[2017-09-26 18:08] LABS: ALBUMIN 3.7 gm/dl (3.1-4.5); CREATININE 11.8 mg/dL (0.70-1.30); TOTAL PROTEIN 8.2 gm/dL (6.4-8.2)
[2017-09-26 18:12] LABS: TROPONIN I 0.074 ng/ml (<0.045)
[2017-09-26 18:26] VITALS: BP 196/104
[2017-09-26 19:20] VITALS: BP 182/84
[2017-09-26 19:50] VITALS: BP 188/84
[2017-09-27] VITALS: BP 188/86
[2017-09-27 06:51] LABS: BASO % 0.4 % (0.0-1.0); EOS # 0.1 10*3/uL (0.0-0.4); EOS % 0.9 % (1.0-4.0); HEMATOCRIT 34.7 % (42.0-52.0); HEMOGLOBIN 11.5 g/dl (14.0-18.0); LYMPH # 1.1 10*3/uL (1.3-4.4); MEAN CELL VOLUME 99.4 fl (80.0-94.0); MEAN CORPUSCULAR HGB CONC 33.1 g/dl (33.0-37.0); MEAN PLATELET VOLUME 9.6 fl (9.6-12.3); MONO # 0.9 10*3/uL (0.1-1.0); MONO % 9.1 % (3.0-9.0); NEUT # 7.8 10*3/uL (2.3-7.9); PLATELET COUNT AUTOMATED 151 10*3/uL (130-400); RED BLOOD COUNT 3.49 10*6/uL (4.50-5.90)
[2017-09-27 06:59] LABS: ALBUMIN 3.7 gm/dl (3.1-4.5); CREATININE 12.6 mg/dL (0.70-1.30); FREE T4 1.1 ng/dl (0.76-1.46); PHOSPHOROUS 8.2 mg/dL (2.5-4.9); TOTAL PROTEIN 8.7 gm/dL (6.4-8.2)
[2017-09-27 07:04] LABS: THYROID STIM HORMONE (HS) 2.43 uIU/ml (0.358-4.75)
[2017-09-27 07:11] LABS: ACT PARTIAL THROMBO TIME 29.8 SECONDS (20.8-31.5)
[2017-09-27 07:17] LABS: POTASSIUM 6.2 mmol/L (3.5-5.1)
[2017-09-27 08:00] VITALS: BP 158/90
[2017-09-27 08:30] LABS: VITAMIN D, 25-HYDROXY 9.9 ng/mL (30-100)
[2017-09-27 09:42] LABS: BILIRUBIN NEGATIVE (NEGATIVE); BLOOD 2+ (NEGATIVE); CLARITY CLEAR (CLEAR); COLOR YELLOW (YELLOW); GLUCOSE 1+ (NEGATIVE); KETONE NEGATIVE (NEGATIVE); LEUKO ESTERASE NEGATIVE (NEGATIVE); NITRITE NEGATIVE (NEGATIVE); SPECIFIC GRAVITY 1.015 (1.005-1.030); UROBILINOGEN 0.2 E.U./dl (0.2-1.0)
[2017-09-27 09:49] LABS: URINE AMPHETAMINES < 1000 (1000ng/ml); URINE BARBITURATES > 200 (200ng/ml); URINE BENZODIAZEPINES < 200 (200ng/ml); URINE CANNABINOIDS (THC) < 50 (50ng/ml); URINE COCAINE > 300 (300ng/ml); URINE METHADONE < 300 (300ng/ml); URINE OPIATES > 300 (300ng/ml)
[2017-09-27 09:52] LABS: URINE PHENCYCLIDINE < 25 (25ng/ml)
[2017-09-27 10:00] LABS: BACTERIA 1+; RBC 16-20 rbc/hpf (0-2)
[2017-09-27 16:00] VITALS: BP 124/92
[2017-09-27 20:00] VITALS: BP 173/82
[2017-09-28] VITALS (8 sets, daily range): BP systolic 110–154; BP diastolic 60–88
[2017-09-28 06:20] LABS: BASO % 0.3 % (0.0-1.0); EOS # 0.1 10*3/uL (0.0-0.4); EOS % 0.5 % (1.0-4.0); HEMATOCRIT 33.2 % (42.0-52.0); LYMPH # 1.1 10*3/uL (1.3-4.4); LYMPH % 9.8 % (27.0-41.0); MEAN CELL VOLUME 97.6 fl (80.0-94.0); MEAN CORPUSCULAR HGB 32.4 pg (27.0-31.0); MEAN CORPUSCULAR HGB CONC 33.1 g/dl (33.0-37.0); MEAN PLATELET VOLUME 9.8 fl (9.6-12.3); MONO # 1.4 10*3/uL (0.1-1.0); MONO % 12.8 % (3.0-9.0); NEUT # 8.3 10*3/uL (2.3-7.9); NEUT % 76.2 % (47.0-73.0); PLATELET COUNT AUTOMATED 136 10*3/uL (130-400); RED CELL DISTRI WIDTH 13.1 % (0-14.5); WHITE BLOOD COUNT 10.9 10*3/uL (4.8-10.8)
[2017-09-28 06:32] LABS: POTASSIUM 5.7 mmol/L (3.5-5.1)
[2017-09-28 06:34] LABS: CREATININE 10.2 mg/dL (0.70-1.30)
[2017-09-28 21:35] LABS: BASO % 0.4 % (0.0-1.0); EOS # 0.1 10*3/uL (0.0-0.4); HEMOGLOBIN 11.2 g/dl (14.0-18.0); LYMPH # 0.8 10*3/uL (1.3-4.4); LYMPH % 10.9 % (27.0-41.0); MEAN CELL VOLUME 98.8 fl (80.0-94.0); MEAN CORPUSCULAR HGB 32.6 pg (27.0-31.0); MEAN CORPUSCULAR HGB CONC 32.9 g/dl (33.0-37.0); MEAN PLATELET VOLUME 9.5 fl (9.6-12.3); MONO # 0.7 10*3/uL (0.1-1.0); NEUT # 6.1 10*3/uL (2.3-7.9); NEUT % 78.2 % (47.0-73.0); PLATELET COUNT AUTOMATED 143 10*3/uL (130-400); RED BLOOD COUNT 3.44 10*6/uL (4.50-5.90); RED CELL DISTRI WIDTH 13.3 % (0-14.5); WHITE BLOOD COUNT 7.7 10*3/uL (4.8-10.8)
[2017-09-28 21:52] LABS: ALBUMIN 3.4 gm/dl (3.1-4.5); CREATININE 11.4 mg/dL (0.70-1.30); POTASSIUM 5.2 mmol/L (3.5-5.1); TOTAL PROTEIN 8.7 gm/dL (6.4-8.2)
[2017-09-29] VITALS: BP 118/82
== END 2017-09-29 01:34 | disposition left against medical advice (07) | DRG 640 ==
LOC: ED 17:26 → 5E 18:24 → EDHOLD 18:24 → 5E 18:48
PROVIDERS: Emergency Medicine; Family Medicine; Internal Medicine Hospice and Palliative Medicine
PROC: 5A1D70Z Performance of Urinary Filtration, Intermittent, Less than 6 Hours Per Day (ICD-10-PCS; 2017-09-27)
PROC: 0DB68ZX Excision of Stomach, Via Natural or Artificial Opening Endoscopic, Diagnostic (ICD-10-PCS; principal; 2017-09-28)
PROC: 5A1D70Z Performance of Urinary Filtration, Intermittent, Less than 6 Hours Per Day (ICD-10-PCS; principal; 2017-09-28)
DX: E87.5 Hyperkalemia (principal); N18.6 End stage renal disease; I13.2 Hypertensive heart and chronic kidney disease with heart failure and with stage 5 chronic kidney disease, or end stage renal disease; I72.3 Aneurysm of iliac artery; S22.41XA Multiple fractures of ribs, right side, initial encounter for closed fracture; E83.51 Hypocalcemia; I50.32 Chronic diastolic (congestive) heart failure; I16.1 Hypertensive emergency; E87.8 Other disorders of electrolyte and fluid balance, not elsewhere classified; K29.70 Gastritis, unspecified, without bleeding; F17.210 Nicotine dependence, cigarettes, uncomplicated; R80.9 Proteinuria, unspecified; R31.9 Hematuria, unspecified; K22.8 Other specified diseases of esophagus; E78.2 Mixed hyperlipidemia; Z53.21 Procedure and treatment not carried out due to patient leaving prior to being seen by health care provider; D53.9 Nutritional anemia, unspecified; W01.0XXA Fall on same level from slipping, tripping and stumbling without subsequent striking against object, initial encounter; E66.09 Other obesity due to excess calories; G40.909 Epilepsy, unspecified, not intractable, without status epilepticus; I50.9 Heart failure, unspecified; I71.4 Abdominal aortic aneurysm, without rupture; D72.810 Lymphocytopenia; D63.1 Anemia in chronic kidney disease; F14.10 Cocaine abuse, uncomplicated; Z99.2 Dependence on renal dialysis; Z71.6 Tobacco abuse counseling; Y93.89 Activity, other specified; Y92.89 Other specified places as the place of occurrence of the external cause; Y99.8 Other external cause status; Z79.82 Long term (current) use of aspirin; Z79.899 Other long term (current) drug therapy; Z83.3 Family history of diabetes mellitus; Z82.49 Family history of ischemic heart disease and other diseases of the circulatory system; Z82.3 Family history of stroke; Z91.15 Patient's noncompliance with renal dialysis; Z68.30 Body mass index [BMI] 30.0-30.9, adult; S30.1XXA Contusion of abdominal wall, initial encounter; K21.0 Gastro-esophageal reflux disease with esophagitis; M54.9 Dorsalgia, unspecified

== ENCOUNTER 2017-09-29 02:00 | Inpatient (IN) | payer MEDICARE ==
[~2017-09-29] VITALS: Ht 193 cm; Wt 108.5 kg
[2017-09-29] VITALS (7 sets, daily range): BP systolic 117–190; BP diastolic 59–97
--- NOTE | ~2017-09-29 | PR ---
[place], [place] PROGRESS NOTE NAME: ORALIA MOLINA UNIT #: [id number] ROOM: 410 DOCTOR: REYES MCCORMICK MD BIRTHDATE: [birth year] DOS: 09/30/2017 SUBJECTIVE: The patient was seen and examined. He is awake and alert and eating lunch. He was seen on hemodialysis. I was called early this morning about critical potassium and the patient agreed to dialysis today. I did put him in for 2 hour treatment. He states he is feeling a little bit better. He is eating lunch and is almost completing treatment. PHYSICAL EXAMINATION: VITAL SIGNS: Temperature 98.4, pulse 84, respiratory rate 18, blood pressure 121/85. HEENT: Shows no JVD. LUNGS: Bilateral rhonchi. HEART: S1, S2. ABDOMEN: Soft, nontender. EXTREMITIES: Had positive edema. LABORATORY DATA: Hemoglobin 10.4, white count of 4.9, platelets of 134. BUN 94, creatinine 1.8, sodium 133, potassium 6.4, calcium 7.9, albumin 3.0, carbon dioxide 26. IMPRESSION: 1. End-stage renal disease, on hemodialysis Sunday, Sunday, Sunday. The patient has continued his noncompliance. He required an urgent treatment today for 2 hours in view of hyperkalemia. We will continue with his normal schedule tomorrow. 2. Anemia. H and H is at target. Give as needed erythropoietin stimulating agents. 3. Hyperphosphatemia. The patient should be on a binder with meals. 4. Hypertension. Continue meds. 5. Noncompliance. This continues to be a problem. Thank you for this consultation. We will follow with you. [place], [place] PROGRESS NOTE NAME: ORALIA MOLINA UNIT #: [id number] ROOM: 410 DOCTOR: REYES MCCORMICK MD BIRTHDATE: [birth year] REYES MCCOMRICK MD CM:PNTRANS [id number] REYES MCCORMICK MD 09/30/17 173 interface
--- NOTE | ~2017-09-29 | PR ---
[place], [place] PROGRESS NOTE NAME: ORALIA MOLINA UNIT #: [id number] ROOM: 410 DOCTOR: YULI OTT MD BIRTHDATE: [birth year] DOS: 10/01/2017 SUBJECTIVE: The patient was seen in followup of end-stage renal disease, underwent dialysis earlier today without any acute hemodynamic instability, did get a little bit agitated towards the last hour or so and came off the machine about 15 minutes early. OBJECTIVE: VITAL SIGNS: Blood pressure has improved to 132/50, temperature 98, pulse 79, respiratory rate 18, blood pressures were elevated prior to starting dialysis, as high as 182/94 overnight, 151/88 this morning. GENERAL: Awake, alert, lying comfortably in bed, in no acute distress. CHEST: Coarse bilaterally. CARDIOVASCULAR: Regular rate. No rub. No palpable lift or heave. EXTREMITIES: Mild edema. ABDOMEN: Soft, nontender. No rebound or guarding. SKIN: Without diffuse rash, but there is chronic pruritic areas and chronic skin changes of vascular insufficiency of the lower extremities. LABORATORY DATA AND DIAGNOSTICS: White blood cell count 4.3, hemoglobin 9.8, platelets 137. Sodium 135, potassium 5.8, chloride 90, bicarbonate 30, BUN 90, creatinine 9.69, glucose 119, calcium 8.1, albumin 2.9, phosphorus 9.7, magnesium 2.5. ASSESSMENT AND PLAN: 1. End-stage renal disease, hemodialysis is ongoing Sunday, Sunday and Sunday normally, but given the patient's noncompliance with full treatment times and hyperkalemia due to dietary indiscretions, he has required multiple treatments throughout his hospital stay including Sunday, yesterday. A full treatment was done today as he continued to have some hyperkalemia ____ and hypertension is improving. 2. Anemia, stable on MARY JANE as long as blood pressure is controlled. 3., Hyperphosphatemia, severe due to inadequate dialysis and inadequate binder usage and dietary indiscretion. Continue oral phosphorus binders on discharge and we will follow up monthly labs and outpatient dialysis. [place], [place] PROGRESS NOTE NAME: ORALIA MOLINA UNIT #: [id number] ROOM: 410 DOCTOR: YULI OTT MD BIRTHDATE: [birth year] YULI OTT MD CM:AUGUST [id number] YULI OTT MD 10/03/17 1526 interface
--- NOTE | ~2017-09-29 | PR ---
[place], [place] PROGRESS NOTE [id number] UN[facility] #: [id number] ROOM: 410 DOCTOR: REYES MCCORMICK MD BIRTHDATE: [birth year] DOS: 09/29/2017 SUBJECTIVE: The patient was seen and examined. The events were noted from yesterday. Apparently, the patient had only about a half an hour of dialysis and then came off the machine. There were plans to have him dialyzed today. The patient apparently yesterday went out to smoke and then essentially just left the hospital AMA. He came right back in through the Emergency Room and was readmitted. He did have dialysis as the orders were placed from yesterday. Apparently, he only completed about an hour of treatment and signed off AMA from dialysis. When I had seen him, he was awake, was moaning on BiPAP. He states he wants to come off the BiPAP machine. Otherwise, he was a poor historian. PHYSICAL EXAMINATION: VITAL SIGNS: Showed temperature 97.4, pulse 77, respiration 20, blood pressure 157/80. NECK: There is no JVD. BiPAP mask is in place. LUNGS: Diminished breath sounds. No wheeze. HEART: S1, S2. No rub. ABDOMEN: Soft, nontender. EXTREMITIES: Showed trace edema to 1+ edema. SKIN: Had numerous lesions noted. DIAGNOSTIC DATA: Reviewed. LABORATORY DATA: ABG showed pH 7.34, pCO2 of 51, pO2 of 62. BUN 75, creatinine 11.9, sodium 132, potassium 5.9, CO2 of 26, calcium 7.4, phosphorus of 9.8. Hemoglobin of 10.0, white count of 5.6, platelets 133. ASSESSMENT AND PLAN: 1. End-stage renal disease. The patient is on a Sunday, Sunday, Sunday schedule. He is noncompliant with treatment. He did complain about an hour of treatment today and a half an hour yesterday. We will plan for dialysis again on Sunday. 2. Anemia. We will use as needed erythropoietin stimulating agents with dialysis. 3. Hyperphosphatemia. The patient should be on a binder with meals. 4. Respiratory acidosis. He is on BiPAP. 5. Hypertension. Continue meds. 6. Noncompliance. This continues to be a problem. [place], [place] PROGRESS NOTE NAME: ORALIA MOLINA UNIT #: [id number] ROOM: 410 DOCTOR: ANNY ELIZALDE,REYES Horne BIRTHDATE: [birth year] REYES MCCORMICK MD CM:PNTRANS 09 [phone] REYES MCCORMICK MD 09/29/172118 interface
[~2017-09-29 02:00] MED LIST changes: +RENA-VITE1 TAB PO
[2017-09-29 02:20] LABS: BASO % 0.4 % (0.0-1.0); EOS # 0.1 10*3/uL (0.0-0.4); HEMATOCRIT 31.5 % (42.0-52.0); HEMOGLOBIN 10.5 g/dl (14.0-18.0); LYMPH # 0.7 10*3/uL (1.3-4.4); LYMPH % 8.8 % (27.0-41.0); MEAN CELL VOLUME 97.8 fl (80.0-94.0); MEAN CORPUSCULAR HGB 32.6 pg (27.0-31.0); MEAN CORPUSCULAR HGB CONC 33.3 g/dl (33.0-37.0); MEAN PLATELET VOLUME 9.4 fl (9.6-12.3); NEUT # 6.2 10*3/uL (2.3-7.9); NEUT % 77.5 % (47.0-73.0); PLATELET COUNT AUTOMATED 129 10*3/uL (130-400); RED BLOOD COUNT 3.22 10*6/uL (4.50-5.90); RED CELL DISTRI WIDTH 13.2 % (0-14.5)
[2017-09-29 02:30] LABS: ACT PARTIAL THROMBO TIME 31.9 SECONDS (20.8-31.5); INTERNATIONAL NORM RATIO 1.1 (2.0-3.5)
[2017-09-29 02:36] LABS: ALBUMIN 3.2 gm/dl (3.1-4.5); CREATININE 11.6 mg/dL (0.70-1.30); POTASSIUM 5.6 mmol/L (3.5-5.1); TOTAL PROTEIN 8.4 gm/dL (6.4-8.2)
[2017-09-29 02:40] LABS: TROPONIN I 0.102 ng/ml (<0.045)
[2017-09-29 05:59] LABS: CREATININE 11.9 mg/dL (0.70-1.30); POTASSIUM 5.9 mmol/L (3.5-5.1)
[2017-09-29 06:00] LABS: BASO % 0.2 % (0.0-1.0); EOS % 0.2 % (1.0-4.0); HEMATOCRIT 30.8 % (42.0-52.0); LYMPH # 0.3 10*3/uL (1.3-4.4); LYMPH % 5.7 % (27.0-41.0); MEAN CELL VOLUME 100.3 fl (80.0-94.0); MEAN CORPUSCULAR HGB 32.6 pg (27.0-31.0); MEAN CORPUSCULAR HGB CONC 32.5 g/dl (33.0-37.0); MEAN PLATELET VOLUME 9.7 fl (9.6-12.3); MONO # 0.4 10*3/uL (0.1-1.0); MONO % 6.9 % (3.0-9.0); NEUT # 4.9 10*3/uL (2.3-7.9); NEUT % 86.6 % (47.0-73.0); PLATELET COUNT AUTOMATED 133 10*3/uL (130-400); RED BLOOD COUNT 3.07 10*6/uL (4.50-5.90); RED CELL DISTRI WIDTH 13.3 % (0-14.5); WHITE BLOOD COUNT 5.6 10*3/uL (4.8-10.8)
[2017-09-29 06:05] LABS: THYROID STIM HORMONE (HS) 2.64 uIU/ml (0.358-4.75)
[2017-09-29 06:34] LABS: PHOSPHOROUS 9.8 mg/dL (2.5-4.9)
[2017-09-29 06:35] LABS: TROPONIN I 0.092 ng/ml (<0.045)
[2017-09-29 09:59] LABS: ABG BASE EXCESS 0.9 mmol/L (-2.0-2.0); ABG HCO3 26.8 mmol/l (22-26); ABG O2 SATURATION 89.9 % (95-97); ARTERIAL BLOOD GAS PCO2 50.6 mmHg (35-45); ARTERIAL BLOOD GAS PH 7.341 (7.35-7.45)
[2017-09-30] VITALS: BP 160/79
[2017-09-30 08:00] VITALS: BP 158/76
[2017-09-30 08:53] LABS: HEMATOCRIT 32.3 % (42.0-52.0); HEMOGLOBIN 10.4 g/dl (14.0-18.0); LYMPH # 0.3 10*3/uL (1.3-4.4); MEAN CELL VOLUME 101.6 fl (80.0-94.0); MEAN CORPUSCULAR HGB 32.7 pg (27.0-31.0); MEAN CORPUSCULAR HGB CONC 32.2 g/dl (33.0-37.0); MEAN PLATELET VOLUME 10.1 fl (9.6-12.3); MONO # 0.3 10*3/uL (0.1-1.0); MONO % 6.7 % (3.0-9.0); NEUT # 4.2 10*3/uL (2.3-7.9); NEUT % 85.5 % (47.0-73.0); PLATELET COUNT AUTOMATED 134 10*3/uL (130-400); RED BLOOD COUNT 3.18 10*6/uL (4.50-5.90); RED CELL DISTRI WIDTH 13.1 % (0-14.5); WHITE BLOOD COUNT 4.9 10*3/uL (4.8-10.8)
[2017-09-30 09:14] LABS: CREATININE 11.8 mg/dL (0.70-1.30); TOTAL PROTEIN 8.2 gm/dL (6.4-8.2)
[2017-09-30 09:22] LABS: POTASSIUM 6.4 mmol/L (3.5-5.1)
[2017-09-30 12:00] VITALS: BP 121/85
[2017-09-30 16:00] VITALS: BP 183/98
[2017-09-30 16:15] VITALS: BP 148/78
[2017-09-30 20:00] VITALS: BP 184/79
[2017-10-01] VITALS: BP 182/94
[2017-10-01 06:11] LABS: ALBUMIN 2.9 gm/dl (3.1-4.5); CREATININE 9.69 mg/dL (0.70-1.30); POTASSIUM 5.8 mmol/L (3.5-5.1)
[2017-10-01 06:34] LABS: PHOSPHOROUS 9.7 mg/dL (2.5-4.9)
[2017-10-01 07:42] LABS: HEMOGLOBIN 9.8 g/dl (14.0-18.0); LYMPH # 0.5 10*3/uL (1.3-4.4); LYMPH % 10.5 % (27.0-41.0); MEAN CORPUSCULAR HGB 32.2 pg (27.0-31.0); MEAN CORPUSCULAR HGB CONC 31.6 g/dl (33.0-37.0); MEAN PLATELET VOLUME 9.7 fl (9.6-12.3); MONO # 0.4 10*3/uL (0.1-1.0); MONO % 9.1 % (3.0-9.0); NEUT # 3.4 10*3/uL (2.3-7.9); NEUT % 79.9 % (47.0-73.0); PLATELET COUNT AUTOMATED 137 10*3/uL (130-400); RED BLOOD COUNT 3.04 10*6/uL (4.50-5.90); RED CELL DISTRI WIDTH 13.2 % (0-14.5); WHITE BLOOD COUNT 4.3 10*3/uL (4.8-10.8)
[2017-10-01 08:00] VITALS: BP 151/88
[2017-10-01 12:00] VITALS: BP 132/50
[2017-10-01 16:00] VITALS: BP 153/85
[2017-10-01 20:00] VITALS: BP 141/76; BP 150/78
[2017-10-02 00:35] VITALS: BP 160/83
[2017-10-02 06:56] LABS: HEMATOCRIT 29.7 % (42.0-52.0); HEMOGLOBIN 9.4 g/dl (14.0-18.0); LYMPH # 0.4 10*3/uL (1.3-4.4); LYMPH % 14.5 % (27.0-41.0); MEAN CELL VOLUME 102.8 fl (80.0-94.0); MEAN CORPUSCULAR HGB 32.5 pg (27.0-31.0); MEAN CORPUSCULAR HGB CONC 31.6 g/dl (33.0-37.0); MEAN PLATELET VOLUME 9.6 fl (9.6-12.3); MONO # 0.4 10*3/uL (0.1-1.0); MONO % 12.2 % (3.0-9.0); NEUT # 2.2 10*3/uL (2.3-7.9); NEUT % 72.6 % (47.0-73.0); PLATELET COUNT AUTOMATED 103 10*3/uL (130-400); RED BLOOD COUNT 2.89 10*6/uL (4.50-5.90); RED CELL DISTRI WIDTH 13.2 % (0-14.5)
[2017-10-02 07:07] LABS: POTASSIUM 5.1 mmol/L (3.5-5.1)
[2017-10-02 07:14] LABS: ALBUMIN 2.5 gm/dl (3.1-4.5); CREATININE 6.95 mg/dL (0.70-1.30); PHOSPHOROUS 7.7 mg/dL (2.5-4.9); TOTAL PROTEIN 7.1 gm/dL (6.4-8.2)
[2017-10-02 08:00] VITALS: BP 156/87
== END 2017-10-02 11:52 | disposition short-term general hospital (02) | DRG 208 ==
LOC: ED 02:00 → 4E 02:52 → EDHOLD 02:52 → 4E 03:03
PROVIDERS: Internal Medicine; Registered Nurse; Student in an Organized Health Care Education/Training Program
PROC: 5A1D70Z Performance of Urinary Filtration, Intermittent, Less than 6 Hours Per Day (ICD-10-PCS; principal; 2017-09-29)
PROC: 5A1935Z Respiratory Ventilation, Less than 24 Consecutive Hours (ICD-10-PCS; principal; 2017-09-29)
PROC: 5A1D70Z Performance of Urinary Filtration, Intermittent, Less than 6 Hours Per Day (ICD-10-PCS; 2017-09-30)
PROC: 5A1D70Z Performance of Urinary Filtration, Intermittent, Less than 6 Hours Per Day (ICD-10-PCS; 2017-10-01)
DX: J96.01 Acute respiratory failure with hypoxia (principal); A48.1 Legionnaires' disease; I13.2 Hypertensive heart and chronic kidney disease with heart failure and with stage 5 chronic kidney disease, or end stage renal disease; J18.9 Pneumonia, unspecified organism; E11.22 Type 2 diabetes mellitus with diabetic chronic kidney disease; J45.41 Moderate persistent asthma with (acute) exacerbation; E44.1 Mild protein-calorie malnutrition; E83.39 Other disorders of phosphorus metabolism; I50.32 Chronic diastolic (congestive) heart failure; E87.2 Acidosis; N18.6 End stage renal disease; E87.1 Hypo-osmolality and hyponatremia; G83.4 Cauda equina syndrome; I72.3 Aneurysm of iliac artery; D53.9 Nutritional anemia, unspecified; J96.02 Acute respiratory failure with hypercapnia; D63.1 Anemia in chronic kidney disease; M54.5 Low back pain; M25.511 Pain in right shoulder; M79.606 Pain in leg, unspecified; M25.512 Pain in left shoulder; F14.10 Cocaine abuse, uncomplicated; M48.07 Spinal stenosis, lumbosacral region; F11.10 Opioid abuse, uncomplicated; E87.5 Hyperkalemia; G40.909 Epilepsy, unspecified, not intractable, without status epilepticus; E78.2 Mixed hyperlipidemia; I71.4 Abdominal aortic aneurysm, without rupture; Z72.0 Tobacco use; Z99.2 Dependence on renal dialysis; Z91.15 Patient's noncompliance with renal dialysis; Z79.82 Long term (current) use of aspirin; Z79.899 Other long term (current) drug therapy; Z82.49 Family history of ischemic heart disease and other diseases of the circulatory system; Z83.3 Family history of diabetes mellitus; Z82.3 Family history of stroke; Z87.81 Personal history of (healed) traumatic fracture; Z68.29 Body mass index [BMI] 29.0-29.9, adult

== ENCOUNTER → 2017-11-12 | Outpatient (CLI) | payer MEDICARE ==
[2017-11-12 09:52] LABS: BASO % 0.6 % (0.0-1.0); EOS # 0.2 10*3/uL (0.0-0.4); EOS % 4.5 % (1.0-4.0); HEMATOCRIT 28.4 % (42.0-52.0); HEMOGLOBIN 9.2 g/dl (14.0-18.0); LYMPH # 0.9 10*3/uL (1.3-4.4); LYMPH % 24.8 % (27.0-41.0); MEAN CELL VOLUME 97.6 fl (80.0-94.0); MEAN CORPUSCULAR HGB 31.6 pg (27.0-31.0); MEAN CORPUSCULAR HGB CONC 32.4 g/dl (33.0-37.0); MEAN PLATELET VOLUME 9.4 fl (9.6-12.3); MONO # 0.3 10*3/uL (0.1-1.0); NEUT # 2.2 10*3/uL (2.3-7.9); NEUT % 62.8 % (47.0-73.0); PLATELET COUNT AUTOMATED 128 10*3/uL (130-400); RED BLOOD COUNT 2.91 10*6/uL (4.50-5.90); RED CELL DISTRI WIDTH 14.2 % (0-14.5); WHITE BLOOD COUNT 3.6 10*3/uL (4.8-10.8)
[2017-11-12 10:24] LABS: ALBUMIN 3.7 gm/dl (3.1-4.5); ALKALINE PHOSPHATASE 79 U/L (45-117); BUN 37 mg/dl (7-24); CHLORIDE 101 mmol/L (98-107); POTASSIUM 3.5 mmol/L (3.5-5.1); SGOT/AST 8 IU/L (3-35); SODIUM 141 mmol/L (136-145); TOTAL PROTEIN 8.1 gm/dL (6.4-8.2)
[2017-11-12 10:26] LABS: CREATININE 5.12 mg/dL (0.70-1.30)
[2017-11-12 10:27] LABS: SGPT/ALT < 6 U/L (12-78)
== END | disposition home or self-care (01) ==
LOC: LAB 09:29
PROVIDERS: Internal Medicine Infectious Disease
DX: G06.2 Extradural and subdural abscess, unspecified (principal)

== ENCOUNTER 2017-12-15 17:43 | Emergency (ER) | payer MEDICARE ==
[~2017-12-15] VITALS: Ht 193 cm; Wt 107.5 kg
[2017-12-15] MEDS ORDERED: NAPROSYN500 MG PO (19:10)
[2017-12-15] MEDS ORDERED: NORCO 5-325 TA1 EACH PO (19:10)
== END 2017-12-15 19:25 | disposition home or self-care (01) ==
LOC: ED 17:43
DX: S82.831A Other fracture of upper and lower end of right fibula, initial encounter for closed fracture (principal); I13.2 Hypertensive heart and chronic kidney disease with heart failure and with stage 5 chronic kidney disease, or end stage renal disease; N18.6 End stage renal disease; I50.32 Chronic diastolic (congestive) heart failure; G40.909 Epilepsy, unspecified, not intractable, without status epilepticus; F17.200 Nicotine dependence, unspecified, uncomplicated; Z99.2 Dependence on renal dialysis; Z79.899 Other long term (current) drug therapy; Z79.82 Long term (current) use of aspirin; W19.XXXA Unspecified fall, initial encounter; Y93.89 Activity, other specified; Y92.89 Other specified places as the place of occurrence of the external cause; Y99.8 Other external cause status

== ENCOUNTER 2018-04-27 17:00 | Inpatient (IN) | payer MEDICARE, MEDICAID ==
[~2018-04-27] VITALS: Ht 195.5 cm; Wt 104.0 kg
--- NOTE | ~2018-04-27 | CON ---
[place], [place] REPORT OF CONSULTATION NAME: ORALIA MOLINA UNIT #: [id number] ROOM: 403 DOCTOR: CHAS MCKEON MD BIRTHDATE: [birth year] DOS: 04/29/2018 REASON FOR CONSULTATION: Left shoulder abscess. CHIEF COMPLAINT: Pain in shoulder. HISTORY OF PRESENT ILLNESS: This is a 52-year-old male who presented to [facility] on 04/27/2018 with chief complaints of pain in his shoulder. He noticed a small pimple-like lesion a few days ago, which kept on growing bigger to the point it was painful and draining, not associated with any fever or chills. He did say he was scratching on it and he has one more lesion in front of his chest. He did not have similar lesions in the past. No IV drug abuse. No trauma. He is on hemodialysis Sunday, Sunday and Sunday and his renal failure was secondary to vancomycin a few years ago. No similar lesions around his fistula, which is near his arm on the left side. He has been started on vancomycin and Zosyn. General Surgery was consulted today and he underwent I and D today. Gram stain and cultures are in process. Currently, his vitals are stable. His labs reveal no leukocytosis. Imaging of the shoulder also did not reveal any deep space abscess in the past. He has MSSA growth from his wound cultures and MRSA also in the past. One of the wound cultures in 2011 had Pseudomonas from right arm. PAST MEDICAL HISTORY: Significant for end-stage renal disease, on hemodialysis, abdominal aortic aneurysm, coronary artery disease, closed fracture proximal end of right fibula, hyperlipidemia, seizure disorder. The patient also claims he had a back infection, which was treated at [facility]; no details of the same. PAST SURGICAL HISTORY: Skin graft, status post excisional debridement. SOCIAL HISTORY: Denies alcohol use. The patient says he snorted cocaine, no IVDA, a [id number] history of smoking. FAMILY HISTORY: father at the age of 52 because of [place]. Mother, no significant past medical history. ALLERGIES: No known drug allergies. MEDICATIONS: As per the EMR noted. REVIEW OF SYSTEMS: A 12-point review of systems has been done, pertinent negatives and positives have been included in HPI, rest are noncontributory. PHYSICAL EXAMINATION: VITAL SIGNS: Temperature 97.7, pulse rate 80, respiratory rate 22, blood pressure 150/86, oxygen saturation 92% on room air. GENERAL: The patient is alert, oriented x 3, not in acute distress. HEENT: Atraumatic, normocephalic. PERRLA, EOMI. RESPIRATORY: Air entry bilaterally equal. No wheezes or crackles. CARDIOVASCULAR: S1, S2 normal. No murmur, rubs or gallops. ABDOMEN: Soft, nontender, nondistended. Bowel sounds present in 4 quadrants. [place], [place] REPORT OF CONSULTATION NAME: ORALIA MOLINA UNIT #: [id number] ROOM: 403 DOCTOR: CHAS MCKEON MD BIRTHDATE: [birth year] EXTREMITIES: Bilateral lower extremity ulcerations noted, chronic with hyperpigmentation. Right upper extremity antecubital fossa also has scarring from his old injuries. Left shoulder full range of motion. At the back, he has the I and D done a few hours ago. Postop dressing in place. NEUROLOGIC: Grossly intact. LABORATORY DATA AND IMAGING: Noted, mentioned in HPI. ASSESSMENT: 1. Left shoulder abscess, status post incision and drainage. 2. End-stage renal disease, on hemodialysis through left arm fistula. 3. 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 PLAN: 1. At this time, I would continue vancomycin, can discontinue Zosyn. 2. Expect to change to p.o. antibiotics in next 24 hours. 3. There is another abscess developing on his chest, which is very tiny at this time, not likely drainable. Continue to monitor for now. Follow the OR cultures. Thank you for your consult. Please call for any questions. Chas Mckeon MD CM:CONSTR:REPORT OF CONSULTATION 1501 04/30/18 0427 interface
--- NOTE | ~2018-04-27 | CON ---
[place], [place] REPORT OF CONSULTATION NAME: ORALIA MOLINA UNIT #: [id number] ROOM: 403 DOCTOR: REYES CMCORMICK MD BIRTHDATE: [birth year] DOS: 04/28/2018 NEPHROLOGY CONSULTATION REASON FOR CONSULTATION: Management of dialysis. HISTORY OF PRESENT ILLNESS: This is a 52-year-old male with past medical history of end-stage renal disease. He is on dialysis Sunday, Sunday and Sunday at [facility]. The patient has known noncompliance. He has a history of hyperkalemia, CHF, hypertension. It seems the patient came to the hospital due to pain in the shoulder. Apparently, this has been an ongoing problem. Seems he has concerns for an abscess. He was started on pain medications and antibiotics, admitted for further evaluation. When I saw him this evening, he denied any major complaints to me. Denies shortness of breath, fevers, chills or night sweats. Denied nausea or vomiting. He is due for dialysis tomorrow. As noted, the patient does have a history of noncompliance. He does sign off treatment early. According to notes, he had his treatment on Sunday in half. ALLERGIES: No known drug allergies. HOME MEDICATIONS: Included aspirin, Lipitor, Depakote, Naprosyn, sodium bicarbonate, valsartan and Alexa-Obdulia. PAST MEDICAL HISTORY: 1. End-stage renal disease, on hemodialysis as stated above. 2. AAA. 3. Coronary artery disease. 4. Cauda equina syndrome. 5. CHF. 6. Chronic pain. 7. Fibula fracture. 8. Hypertension. 9. Hyperlipidemia. 10. Bilateral iliac artery aneurysm. 11. Seizure disorder. 12. Vitamin D deficiency. 13. History of skin graft. 14. Excisional debridement. 15. Dialysis access procedure. FAMILY HISTORY: There is no reported history of chronic kidney disease, otherwise noncontributory. SOCIAL HISTORY: There is history of cocaine and tobacco abuse for over 30 years. REVIEW OF SYSTEMS: As per HPI, otherwise, a 10-point review of systems was reviewed and was negative. [place], [place] REPORT OF CONSULTATION NAME: ORALIA MOLINA UNIT #: [id number] ROOM: 403 DOCTOR: REYES MCCORMICK MD BIRTHDATE: [birth year] PHYSICAL EXAMINATION: VITAL SIGNS: Temperature 97.7, pulse 89, respiration 20, blood pressure 170/90. GENERAL: He is awake, alert, comfortable, in no acute distress. HEENT: Shows no JVD. Sclerae are anicteric. Mucous membranes were moist. Oropharynx is clear. NECK: Supple. Trachea is midline. No lymphadenopathy or thyromegaly. LUNGS: Clear to auscultation. No crackles, wheezing or rales. No tactile fremitus. He is not using accessory muscles of respiration. HEART: S1, S2. No rub, thrill or gallop. ABDOMEN: Soft and nontender. There is organomegaly or rigidity, rebound or guarding. There is no CVA tenderness. EXTREMITIES: There is no edema. There is no lower extremity lymphadenopathy. Distal pulses are present. SKIN: No overt rashes, no petechiae or purpura. Skin temperature is warm. NEUROLOGIC: Awake, alert and following commands. Cranial nerves are intact. LABORATORY DATA: Hemoglobin 9.5, white count 6.4, platelets 143, BUN 62, creatinine 8.1, sodium 137, potassium 5.4, CO2 of 23, calcium 7.6, phosphorus 7.8, magnesium 2.3. IMPRESSION: 1. End-stage renal disease on hemodialysis Sunday, Sunday and Sunday. 2. Hypertension. 3. Abscess versus cellulitis of the shoulder. 4. Noncompliance. 5. Hyperphosphatemia. 6. Tobacco abuse. 7. Anemia of chronic disease. PLAN: 1. We will plan for dialysis tomorrow. Fluid removal as tolerated. 2. Dose meds for end-stage renal disease. 3. Standard renal diet. 4. Continue home medications. 5. Continue supportive care. Thank you for this consultation. We will follow with you. REYES MCCORMICK MD CM:CONSTR:REPORT OF CONSULTATION 01 04/28/182118 interface
--- NOTE | ~2018-04-27 | PROC NOTE ---
[place], [place] PROCEDURE NOTE [id number] UNIT #: [id number] ROOM: 403 DOCTOR: CAPRICE LACY MD BIRTHDATE: [birth year] DOS: 04/29/2018 PREOPERATIVE DIAGNOSIS: Infected left posterior shoulder ulcer. POSTOPERATIVE DIAGNOSIS: Infected left posterior shoulder ulcer. PROCEDURE: Debridement of infected left posterior shoulder ulcer. SURGEON: Caprice Lacy MD SCREENING SPECIALIST: JULES. ANESTHESIA: MAC. INDICATIONS: This is a 52-year-old gentleman with a history of an infected left posterior shoulder ulcer, who is here for the above-mentioned procedure. The procedure and its complications were explained to the patient in detail and he agreed to proceed. DESCRIPTION OF PROCEDURE: After identifying the patient, the patient was brought to the operating suite and laid in the right lateral position. After IV sedation was administered, a time-out procedure was called and the parts were painted and draped in the usual sterile fashion after local anesthesia (1% plain lidocaine) was injected for local anesthesia. The ulcer was debrided in a blunt and sharp fashion. A specimen of pus was sent for culture and sensitivity. Thereafter, the ulcer was packed with 1/4th inch iodoform and a dressing was placed. The patient was brought back to the recovery room in stable fashion. There were no complications. Dr. Caprice Lacy, the attending surgeon, was present throughout the operating case. Caprice Lacy MD CM:PROCNOTE:PROCEDURE NOTE 1322 02 CAPRICE LACY MD
[~2018-04-27 17:00] MED LIST changes: +NORCO 5-325 TA1 EACH PO
[2018-04-27 17:02] VITALS: BP 157/83
[2018-04-27 17:36] LABS: BASO % 0.5 % (0.0-1.0); EOS # 0.3 10*3/uL (0.0-0.4); EOS % 3.4 % (1.0-4.0); HEMATOCRIT 36.5 % (42.0-52.0); HEMOGLOBIN 11.5 g/dl (14.0-18.0); LYMPH # 1.2 10*3/uL (1.3-4.4); LYMPH % 14.4 % (27.0-41.0); MEAN CELL VOLUME 98.1 fl (80.0-94.0); MEAN CORPUSCULAR HGB 30.9 pg (27.0-31.0); MEAN CORPUSCULAR HGB CONC 31.5 g/dl (33.0-37.0); MEAN PLATELET VOLUME 9.3 fl (9.6-12.3); MONO # 0.6 10*3/uL (0.1-1.0); MONO % 7.7 % (3.0-9.0); NEUT # 6.1 10*3/uL (2.3-7.9); NEUT % 73.8 % (47.0-73.0); PLATELET COUNT AUTOMATED 166 10*3/uL (130-400); RED BLOOD COUNT 3.72 10*6/uL (4.50-5.90); RED CELL DISTRI WIDTH 14.8 % (0-14.5); WHITE BLOOD COUNT 8.3 10*3/uL (4.8-10.8)
[2018-04-27 18:06] LABS: ALBUMIN 3.3 gm/dl (3.1-4.5); CREATININE 7.57 mg/dL (0.70-1.30); POTASSIUM 4.4 mmol/L (3.5-5.1); TOTAL PROTEIN 8.9 gm/dL (6.4-8.2)
--- NOTE | 2018-04-27 19:27 | NUR ---
THE PATIENT IS RESTING COMFORTABLY ON THE BED. THE CALL LIGHT IS WITHIN REACH. NO NEW VOICED C/O
[2018-04-27 19:40] VITALS: BP 177/88; BP 99/61
--- NOTE | 2018-04-27 19:49 | NUR ---
THE PT REFUSED THE CORROSION CONTROL TECHNICIAN
[2018-04-27 20:00] VITALS: BP 177/88; BP 99/61
--- NOTE | 2018-04-27 20:00 | NUR ---
PATIENT DOESN'T KNOW HOME MEDICATIONS. WILL HAVE DAYLIGHT NURSE CALL BRENDA CORONADO IN THE MORNING TO VERIFY HOME MEDS.
--- NOTE | 2018-04-27 20:01 | NUR ---
DR. SUAREZ NOTIFIED THAT PATIENT IS REFUSING TO WEAR FEED ADVISER.
--- NOTE | 2018-04-27 22:35 | NUR ---
A 52, admitted to 4E, under the services of JAYLIN Warren DO with a diagnosis of ABSCESS OR CELLULITIS OF SHOULDER. Chief complaint is REDNESS, PAIN. Patient arrived via ambulatory from ER. Monitor applied. Initial assessment completed. Vital signs taken and recorded. JAYLIN WARREN DO notified of admission to the unit. Orders received. See assessment for past medical history, medications and allergies. Patient and/or family oriented to unit. visitation policy reviewed. Clothing/patient valuable form completed. HARISH SHAH
[2018-04-28] VITALS: BP 106/68
[2018-04-28 06:03] LABS: CREATININE 8.13 mg/dL (0.70-1.30); FREE T4 0.8 ng/dl (0.76-1.46); PHOSPHOROUS 7.8 mg/dL (2.5-4.9)
[2018-04-28 06:11] LABS: THYROID STIM HORMONE (HS) 3.11 uIU/ml (0.358-4.75)
[2018-04-28 06:15] LABS: POTASSIUM 5.4 mmol/L (3.5-5.1)
[2018-04-28 06:23] LABS: BASO % 0.5 % (0.0-1.0); EOS # 0.3 10*3/uL (0.0-0.4); EOS % 3.9 % (1.0-4.0); HEMATOCRIT 31.3 % (42.0-52.0); HEMOGLOBIN 9.5 g/dl (14.0-18.0); LYMPH # 0.9 10*3/uL (1.3-4.4); LYMPH % 14.4 % (27.0-41.0); MEAN CELL VOLUME 99.1 fl (80.0-94.0); MEAN CORPUSCULAR HGB 30.1 pg (27.0-31.0); MEAN CORPUSCULAR HGB CONC 30.4 g/dl (33.0-37.0); MEAN PLATELET VOLUME 10.2 fl (9.6-12.3); MONO # 0.7 10*3/uL (0.1-1.0); MONO % 10.3 % (3.0-9.0); NEUT # 4.5 10*3/uL (2.3-7.9); NEUT % 70.7 % (47.0-73.0); PLATELET COUNT AUTOMATED 143 10*3/uL (130-400); RED BLOOD COUNT 3.16 10*6/uL (4.50-5.90); RED CELL DISTRI WIDTH 14.7 % (0-14.5); WHITE BLOOD COUNT 6.4 10*3/uL (4.8-10.8)
[2018-04-28 06:34] LABS: ACT PARTIAL THROMBO TIME 29.6 SECONDS (20.8-31.5)
[2018-04-28 08:00] VITALS: BP 156/87
--- NOTE | 2018-04-28 08:24 | NUR ---
DR. OTT'S ANSWERING SERVICE NOTIFIED OF CONSULT FOR PATIENT.
[2018-04-28 09:34] LABS: VITAMIN D, 25-HYDROXY 16.7 ng/mL (30-100)
[2018-04-28 12:00] VITALS: BP 160/88
[2018-04-28] MEDS ORDERED: NORVASC10 MG PO (12:20)
[2018-04-28] MEDS ORDERED: ROCALTROL0.25 MC2 PO (12:21)
[2018-04-28] MEDS ORDERED: TAMSULOSIN HCL0.4 MG PO (12:23)
[2018-04-28] MEDS ORDERED: CALCIUM ACETAT667 MG PO (12:23)
[2018-04-28] MEDS ORDERED: CARBAMAZEPINE100 MG PO (12:25)
[2018-04-28 16:00] VITALS: BP 170/90
[2018-04-28 20:00] VITALS: BP 160/83
[2018-04-29] VITALS (9 sets, daily range): BP systolic 82–176; BP diastolic 52–91
--- NOTE | 2018-04-29 06:00 | NUR ---
DIALYSIS CLINIC NOTIFIED OF PATIENT BEING HERE AND NEEDING DIALYSIS ON .
[2018-04-29 06:38] LABS: BASO % 0.5 % (0.0-1.0); EOS # 0.2 10*3/uL (0.0-0.4); EOS % 4.8 % (1.0-4.0); HEMATOCRIT 30.6 % (42.0-52.0); HEMOGLOBIN 9.3 g/dl (14.0-18.0); LYMPH # 0.7 10*3/uL (1.3-4.4); LYMPH % 19.4 % (27.0-41.0); MEAN CELL VOLUME 98.4 fl (80.0-94.0); MEAN CORPUSCULAR HGB 29.9 pg (27.0-31.0); MEAN CORPUSCULAR HGB CONC 30.4 g/dl (33.0-37.0); MONO # 0.4 10*3/uL (0.1-1.0); MONO % 9.3 % (3.0-9.0); NEUT # 2.5 10*3/uL (2.3-7.9); NEUT % 65.7 % (47.0-73.0); PLATELET COUNT AUTOMATED 136 10*3/uL (130-400); RED BLOOD COUNT 3.11 10*6/uL (4.50-5.90); RED CELL DISTRI WIDTH 14.6 % (0-14.5); WHITE BLOOD COUNT 3.8 10*3/uL (4.8-10.8)
[2018-04-29 06:53] LABS: CREATININE 9.15 mg/dL (0.70-1.30); PHOSPHOROUS 8.5 mg/dL (2.5-4.9); POTASSIUM 5.2 mmol/L (3.5-5.1)
--- NOTE | 2018-04-29 08:14 | NUR ---
PATIENT CONTINUES TO REFUSES PLACEMENT OF HEART MONITOR AT THIS TIME.
--- NOTE | 2018-04-29 09:00 | NUR ---
Hematology Technologist in to see patient. He is currently in dialysis. Will follow up at a later time.
--- NOTE | 2018-04-29 10:56 | NUR ---
Patient off the floor in dialysis at this time.
[2018-04-29 12:40] LABS: ACT PARTIAL THROMBO TIME 27.6 SECONDS (20.8-31.5)
--- NOTE | 2018-04-29 15:26 | NUR ---
PATIENT RECEIVED NORCO FOR PAIN IN LEFT SHOULDER RATED 6/10.
--- NOTE | 2018-04-29 16:04 | NUR ---
CALLED DR DE DIOS TO LET HIM KNOW THAT WE ARE UNABLE TO CHANGE THE DOCUMENTED PULSE RATE >800 DUE TO IT NOT BEING CHARTED BY ONE OF OUR STAFF ON THE FLOOR. THE PULSE MUST HAVE BEEN DOCUMENTED BY EITHER DIALYSIS OR SURGERY WHILE THE PATIENT WAS OFF THE FLOOR FROM 0800 TO 1400.
--- NOTE | 2018-04-29 19:19 | NUR ---
PATIENT CONTINUES TO REFUSE HEART MONITOR
--- NOTE | 2018-04-29 23:05 | NUR ---
24 HR chart check completed.
[2018-04-30] VITALS: BP 149/91
--- NOTE | 2018-04-30 03:49 | NUR ---
RESTING WITH NO S/S OF DISTRESS. RESPS EASY AND REGULAR. BED IN LOWEST POSITION, CALL LIGHT IN REACH
[2018-04-30 06:00] LABS: EOS # 0.2 10*3/uL (0.0-0.4); EOS % 5.2 % (1.0-4.0); HEMATOCRIT 29.8 % (42.0-52.0); HEMOGLOBIN 9.2 g/dl (14.0-18.0); LYMPH # 0.9 10*3/uL (1.3-4.4); LYMPH % 28.4 % (27.0-41.0); MEAN CELL VOLUME 97.1 fl (80.0-94.0); MEAN CORPUSCULAR HGB CONC 30.9 g/dl (33.0-37.0); MEAN PLATELET VOLUME 9.6 fl (9.6-12.3); MONO # 0.4 10*3/uL (0.1-1.0); MONO % 13.1 % (3.0-9.0); NEUT # 1.6 10*3/uL (2.3-7.9); PLATELET COUNT AUTOMATED 152 10*3/uL (130-400); RED BLOOD COUNT 3.07 10*6/uL (4.50-5.90); RED CELL DISTRI WIDTH 14.6 % (0-14.5); WHITE BLOOD COUNT 3.1 10*3/uL (4.8-10.8)
[2018-04-30 06:36] LABS: CREATININE 6.89 mg/dL (0.70-1.30); POTASSIUM 5.5 mmol/L (3.5-5.1)
[2018-04-30 08:00] VITALS: BP 156/96
--- NOTE | 2018-04-30 08:00 | NUR ---
Alteration Tailor in to talk to patient. Patient states lives at home alone. There are 12 steps in the home. Physician: Dr. Angel Adler Pharmacy: [facility]: has had in the past but doesn't remember the name of the company out of [place], requesting [facility] RN Patient's level of ADLs: MINIMAL ASSIST Patient has working utilities: yes DME: cane Follow-up physician's appointment after d/c: will be made by the hospitalist nurse director upon discharge Does patient want to access PORTAL?: no Discharge plan discussed with patient. He lives at home alone and has no family. He is independent in his ADLs and uses a cane occasionally if his legs are acting up. He has a warehouse incentive selector. He is dialysis MWF, chair time is 5 am, and he drives himself. Discussed home health care services and he is agreeable to a nurse to change his dressing. He has had home health in the past with a company out of [place] but he doesn't remember the name. When given a list of agencies he chose [facility]. Hospitalist nurse director notified. systems planner following. JESSENIA NICHOLS
[2018-04-30 08:30] VITALS: BP 140/74
--- NOTE | 2018-04-30 08:31 | NUR ---
Spoke with Dr. Lacy regarding wound recommendations. He stated to put the dressing orders in and have the patient follow up in the wound care center and home health if he is able to have it.
--- NOTE | 2018-04-30 08:36 | NUR ---
Follow up appointment made with Dr. Shane in the wound care center on 05/02/18 @ 9:30am.
--- NOTE | 2018-04-30 08:45 | NUR ---
PATIENT RECEIVED NORCO FOR PREMEDICATION FOR DRESSING CHANGE.
--- NOTE | 2018-04-30 09:08 | NUR ---
Patient unable to make 9:30 am appointment on 05/02/18 changed to 8:30am on 05/02/18 in the wound care center with Dr. Shane.
--- NOTE | 2018-04-30 09:09 | NUR ---
ORALIA MOLINA [id number] Please refer to the physician's history and physical for past medical history, comorbid conditions, and allergies. Diagnosis: ABSCESS OR CELLULITIS OF SHOULDER DIALYSIS PT Brock Score: 22,LOW OR NO RISK WOUND DESCRIPTIONS: Location of the wound: left upper back Type of wound: surgical Thickness: Full Size: 2.3cm x 2.3cm x 1.8cm Tunneling: none Undermining: none Sinus Tract: none Presence of Exudate: Serosanguineous Amount: Heavy Color: Yellow, red, brown Odor: None Periwound Skin Appearance: Erythema Wound edges: approximated Pain (associated with wound): very tender to touch How does patient state this happened? pt stated it started as a red bump and got worse Surface the patient is resting on: Position Pro SKIN PREVENTION RECOMMENDATION: 1. Pressure redistribution support surface as appropriate 2. Elevate heels 3. Remove boots/TEDS every shift and reapply 4. Head of bed 30 degrees as tolerated 5. Assess nutrition and hydration 6. Manage moisture 7. Avoid the use of containment devices while in bed 8. Use absorptive products on surfaces limit layers of linens on bed 9. Turn and reposition every 1-2 hours in bed and every 1 hour in chair as tolerated 10. Weight shifts every 15 minutes while up in chair 11. Offloading with pillows or device to keep heels elevated off bed 12. Monitor skin at least every shift 13. Inspect under medical devices twice a day WOUND TREATMENT RECOMMENDATIONS: Follow Dr. Lacy's wound care orders and follow appointment in wound care center with Dr. Shane on 05/02/18 @ 8:30am.
[2018-04-30 12:00] VITALS: BP 160/80
[2018-04-30] MEDS ORDERED: LINEZOLID600 MG PO (13:56)
--- NOTE | 2018-04-30 14:34 | NUR ---
Hospitalist nurse director notified of need of home health order.
--- NOTE | 2018-04-30 15:00 | NUR ---
Discharge instructions reviewed with patient/family. Patient receptive and verbalizes understanding. Follow-up care arranged. Written instructions given to patient/family. PATIENT AMBULATED FROM THE FLOOR. NO S/S OF DISTRESS. GI PRADO
== END 2018-04-30 15:00 | disposition home or self-care (01) | DRG 853 ==
LOC: ED 17:00 → EDHOLD 18:02 → 4E 18:02
PROVIDERS: Internal Medicine; Nurse Practitioner Family; ADMIT Internal Medicine
PROC: 0JBF0ZZ Excision of Left Upper Arm Subcutaneous Tissue and Fascia, Open Approach (ICD-10-PCS; principal; 2018-04-29)
DX: A41.9 Sepsis, unspecified organism (principal); N18.6 End stage renal disease; L02.414 Cutaneous abscess of left upper limb; I50.32 Chronic diastolic (congestive) heart failure; E44.1 Mild protein-calorie malnutrition; L03.114 Cellulitis of left upper limb; D53.9 Nutritional anemia, unspecified; D72.810 Lymphocytopenia; F17.210 Nicotine dependence, cigarettes, uncomplicated; G40.909 Epilepsy, unspecified, not intractable, without status epilepticus; D63.8 Anemia in other chronic diseases classified elsewhere; E83.39 Other disorders of phosphorus metabolism; L72.8 Other follicular cysts of the skin and subcutaneous tissue; L98.499 Non-pressure chronic ulcer of skin of other sites with unspecified severity; I11.0 Hypertensive heart disease with heart failure; B96.89 Other specified bacterial agents as the cause of diseases classified elsewhere; I25.10 Atherosclerotic heart disease of native coronary artery without angina pectoris; E78.2 Mixed hyperlipidemia; G89.29 Other chronic pain; E87.8 Other disorders of electrolyte and fluid balance, not elsewhere classified; Z99.2 Dependence on renal dialysis; Z87.01 Personal history of pneumonia (recurrent); Z82.49 Family history of ischemic heart disease and other diseases of the circulatory system; Z83.3 Family history of diabetes mellitus; Z82.3 Family history of stroke; Z68.27 Body mass index [BMI] 27.0-27.9, adult; Z79.899 Other long term (current) drug therapy; Z79.82 Long term (current) use of aspirin; Z71.6 Tobacco abuse counseling; Z91.19 Patient's noncompliance with other medical treatment and regimen

== ENCOUNTER → 2018-05-09 | Outpatient (CLI) | payer MEDICARE, MEDICAID ==
[~2018-05-09] MED LIST changes: +CARBAMAZEPINE100 MG PO; +LINEZOLID600 MG PO; +NORVASC10 MG PO; +ROCALTROL0.25 MC2 PO; +TAMSULOSIN HCL0.4 MG PO
== END | disposition home or self-care (01) ==
LOC: WOUNDCARE 04:11
DX: L02.414 Cutaneous abscess of left upper limb (principal); I12.0 Hypertensive chronic kidney disease with stage 5 chronic kidney disease or end stage renal disease; N18.6 End stage renal disease; I25.10 Atherosclerotic heart disease of native coronary artery without angina pectoris; E78.5 Hyperlipidemia, unspecified; E55.9 Vitamin D deficiency, unspecified; Z99.2 Dependence on renal dialysis; F17.200 Nicotine dependence, unspecified, uncomplicated

== ENCOUNTER 2021-06-09 10:08 | Emergency (ER) | payer OTHER, MEDICARE, MEDICAID | END 2021-06-09 14:39 | disposition home or self-care (01) | LOC: ED 10:08 | DX: S20.211A Contusion of right front wall of thorax, initial encounter (principal); Z79.899 Other long term (current) drug therapy; Z79.82 Long term (current) use of aspirin; Z87.891 Personal history of nicotine dependence; V59.69XA Unspecified occupant of pick-up truck or van injured in collision with other motor vehicles in traffic accident, initial encounter; Y93.89 Activity, other specified; Y92.89 Other specified places as the place of occurrence of the external cause; Y99.8 Other external cause status ==

== ENCOUNTER 2021-06-27 00:02 | Emergency (ER) | payer MEDICARE, MEDICAID ==
[~2021-06-27] VITALS: Ht 193 cm; Wt 117.9 kg
[2021-06-27 00:43] LABS: BASO % 0.5 % (0.0-1.0); EOS # 0.2 10*3/uL (0.0-0.4); HEMATOCRIT 33.4 % (42.0-52.0); LYMPH # 1.5 10*3/uL (1.3-4.4); LYMPH % 25.6 % (27.0-41.0); MEAN CELL VOLUME 96.3 fl (80.0-94.0); MEAN CORPUSCULAR HGB 30.3 pg (27.0-31.0); MEAN CORPUSCULAR HGB CONC 31.4 g/dl (33.0-37.0); MEAN PLATELET VOLUME 9.4 fl (9.6-12.3); MONO # 0.6 10*3/uL (0.1-1.0); MONO % 10.7 % (3.0-9.0); NEUT # 3.5 10*3/uL (2.3-7.9); NEUT % 58.9 % (47.0-73.0); PLATELET COUNT AUTOMATED 207 10*3/uL (130-400); RED BLOOD COUNT 3.47 10*6/uL (4.50-5.90); RED CELL DISTRI WIDTH 16.2 % (0-14.5)
[2021-06-27 01:00] LABS: ALBUMIN 3.1 gm/dl (3.1-4.5); CREATININE 13.8 mg/dL (0.70-1.30); TOTAL PROTEIN 7.7 gm/dL (6.4-8.2)
[2021-06-27 01:15] LABS: POTASSIUM 6.2 mmol/L (3.5-5.1)
== END 2021-06-27 04:53 | disposition home or self-care (01) ==
LOC: ED 00:02
PROVIDERS: Emergency Medicine
DX: I13.2 Hypertensive heart and chronic kidney disease with heart failure and with stage 5 chronic kidney disease, or end stage renal disease (principal); N18.6 End stage renal disease; I50.32 Chronic diastolic (congestive) heart failure; E87.5 Hyperkalemia; I25.10 Atherosclerotic heart disease of native coronary artery without angina pectoris; G40.909 Epilepsy, unspecified, not intractable, without status epilepticus; Z79.899 Other long term (current) drug therapy; Z99.2 Dependence on renal dialysis; Z87.891 Personal history of nicotine dependence

== ENCOUNTER → 2021-07-26 | Outpatient (CLI) | payer MEDICARE, MEDICAID ==
[2021-07-26 15:35] LABS: BASO % 0.7 % (0.0-1.0); EOS # 0.2 10*3/uL (0.0-0.4); EOS % 3.1 % (1.0-4.0); HEMATOCRIT 42.1 % (42.0-52.0); LYMPH # 1.4 10*3/uL (1.3-4.4); MEAN CELL VOLUME 96.8 fl (80.0-94.0); MEAN CORPUSCULAR HGB 30.3 pg (27.0-31.0); MEAN CORPUSCULAR HGB CONC 31.4 g/dl (33.0-37.0); MEAN PLATELET VOLUME 9.8 fl (9.6-12.3); MONO # 0.5 10*3/uL (0.1-1.0); MONO % 7.9 % (3.0-9.0); NEUT # 3.7 10*3/uL (2.3-7.9); PLATELET COUNT AUTOMATED 213 10*3/uL (130-400); RED BLOOD COUNT 4.35 10*6/uL (4.50-5.90); RED CELL DISTRI WIDTH 14.7 % (0-14.5); WHITE BLOOD COUNT 5.8 10*3/uL (4.8-10.8)
[2021-07-26 16:00] LABS: CREATININE 10.8 mg/dL (0.70-1.30); POTASSIUM 3.9 mmol/L (3.5-5.1)
[2021-07-26 16:01] LABS: FREE T4 1.02 ng/dl (0.76-1.46)
[2021-07-26 16:06] LABS: THYROID STIM HORMONE (HS) 1.68 uIU/ml (0.358-4.75)
== END | disposition home or self-care (01) ==
LOC: LAB 15:13
PROVIDERS: ATTEND Internal Medicine
DX: I10 Essential (primary) hypertension (principal); R06.02 Shortness of breath

== ENCOUNTER → 2021-11-29 | Outpatient (CLI) | payer OTHER, MEDICAID | END | disposition home or self-care (01) | LOC: CARD 11:01 | PROVIDERS: ATTEND Internal Medicine | DX: I08.3 Combined rheumatic disorders of mitral, aortic and tricuspid valves (principal); Z79.899 Other long term (current) drug therapy ==

== ENCOUNTER → 2021-12-06 | Outpatient (CLI) | payer OTHER, MEDICAID | END | disposition home or self-care (01) | LOC: US 11-03 09:00 | PROVIDERS: ATTEND Internal Medicine | DX: N18.6 End stage renal disease (principal); N28.1 Cyst of kidney, acquired; R16.1 Splenomegaly, not elsewhere classified; I51.7 Cardiomegaly ==

== ENCOUNTER → 2021-12-08 | Outpatient (CLI) | payer OTHER, MEDICAID ==
[~2021-12-08] MED LIST changes: +ACETAMINOPHEN-1 EAC1 PO; +ATARAX,VISTARIL10 MG PO; +CARVEDILOL3.125 MG PO; +LISINOPRIL2.5 MG PO; +PROAIR HFA8.5 GM INH; +PROVENTIL HFA6.7 GM INH; +RENVELA800 MG PO; +VARENICLINE TA0.5 MG PO
== END | disposition home or self-care (01) ==
LOC: US 08:14
PROVIDERS: ATTEND Internal Medicine
DX: I71.4 Abdominal aortic aneurysm, without rupture (principal)

== ENCOUNTER 2022-01-15 18:18 | Emergency (ER) | payer MEDICARE ==
[~2022-01-15] VITALS: Ht 193 cm; Wt 117.9 kg
[~2022-01-15 18:18] MED LIST changes: +DOXYCYCLINE HY100 M3 PO
[2022-01-15 18:58] LABS: BASO % 0.8 % (0.0-1.0); EOS # 0.2 10*3/uL (0.0-0.4); EOS % 4.6 % (1.0-4.0); HEMATOCRIT 38.3 % (42.0-52.0); LYMPH # 1.2 10*3/uL (1.3-4.4); LYMPH % 24.4 % (27.0-41.0); MEAN CELL VOLUME 99.7 fl (80.0-94.0); MEAN CORPUSCULAR HGB 31.3 pg (27.0-31.0); MEAN CORPUSCULAR HGB CONC 31.3 g/dl (33.0-37.0); MEAN PLATELET VOLUME 10.2 fl (9.6-12.3); MONO # 0.4 10*3/uL (0.1-1.0); MONO % 8.8 % (3.0-9.0); NEUT # 3.1 10*3/uL (2.3-7.9); NEUT % 61.2 % (47.0-73.0); PLATELET COUNT AUTOMATED 116 10*3/uL (130-400); RED BLOOD COUNT 3.84 10*6/uL (4.50-5.90); RED CELL DISTRI WIDTH 16.2 % (0-14.5)
[2022-01-15 19:17] LABS: CREATININE 10.7 mg/dL (0.70-1.30); POTASSIUM 5.4 mmol/L (3.5-5.1); TOTAL PROTEIN 7.5 gm/dL (6.4-8.2)
[2022-01-15 19:25] LABS: ACT PARTIAL THROMBO TIME 29.5 SECONDS (20.0-32.1); INTERNATIONAL NORM RATIO 1.2 (2.0-3.5)
== END 2022-01-16 04:50 | disposition home or self-care (01) ==
LOC: ED 18:18
PROVIDERS: Emergency Medicine
DX: E87.70 Fluid overload, unspecified (principal); Z20.822 Contact with and (suspected) exposure to COVID-19; I13.2 Hypertensive heart and chronic kidney disease with heart failure and with stage 5 chronic kidney disease, or end stage renal disease; N18.6 End stage renal disease; I50.32 Chronic diastolic (congestive) heart failure; E66.9 Obesity, unspecified; J44.9 Chronic obstructive pulmonary disease, unspecified; I25.10 Atherosclerotic heart disease of native coronary artery without angina pectoris; E78.5 Hyperlipidemia, unspecified; G40.909 Epilepsy, unspecified, not intractable, without status epilepticus; F17.210 Nicotine dependence, cigarettes, uncomplicated; Z99.2 Dependence on renal dialysis; Z79.899 Other long term (current) drug therapy; Z79.2 Long term (current) use of antibiotics; Z68.30 Body mass index [BMI] 30.0-30.9, adult

== ENCOUNTER 2022-02-12 23:26 | Emergency (ER) | payer MEDICARE ==
[~2022-02-12] VITALS: Wt 117.9 kg
[2022-02-13 00:09] LABS: BASO # 0.1 10*3/uL (0.0-0.1); BASO % 0.9 % (0.0-1.0); EOS # 0.2 10*3/uL (0.0-0.4); EOS % 2.7 % (1.0-4.0); LYMPH # 1.4 10*3/uL (1.3-4.4); LYMPH % 20.5 % (27.0-41.0); MEAN CELL VOLUME 100.5 fl (80.0-94.0); MEAN CORPUSCULAR HGB 32.2 pg (27.0-31.0); MEAN CORPUSCULAR HGB CONC 32.1 g/dl (33.0-37.0); MEAN PLATELET VOLUME 11.1 fl (9.6-12.3); MONO # 0.7 10*3/uL (0.1-1.0); MONO % 10.3 % (3.0-9.0); NEUT # 4.6 10*3/uL (2.3-7.9); NEUT % 65.3 % (47.0-73.0); PLATELET COUNT AUTOMATED 130 10*3/uL (130-400); RED BLOOD COUNT 3.88 10*6/uL (4.50-5.90)
[2022-02-13 00:28] LABS: CREATININE 11.1 mg/dL (0.70-1.30); TOTAL PROTEIN 7.6 gm/dL (6.4-8.2)
[2022-02-13 00:29] LABS: ACT PARTIAL THROMBO TIME 28.7 SECONDS (20.0-32.1); INTERNATIONAL NORM RATIO 1.3 (2.0-3.5)
== END 2022-02-13 05:36 | disposition home or self-care (01) ==
LOC: ED 23:26
PROVIDERS: Family Medicine
DX: R06.02 Shortness of breath (principal); Z20.822 Contact with and (suspected) exposure to COVID-19; Z79.899 Other long term (current) drug therapy; Z87.891 Personal history of nicotine dependence

== ENCOUNTER → 2022-02-16 | Outpatient (CLI) | payer MEDICARE | END | disposition home or self-care (01) | LOC: LAB 10:27 | PROVIDERS: ATTEND Surgery | DX: E21.3 Hyperparathyroidism, unspecified (principal) ==

== ENCOUNTER 2022-03-11 21:49 | Emergency (ER) | payer MEDICARE ==
[2022-03-11 22:41] LABS: BASO % 0.7 % (0.0-1.0); EOS # 0.2 10*3/uL (0.0-0.4); EOS % 2.5 % (1.0-4.0); HEMATOCRIT 42.2 % (42.0-52.0); LYMPH # 1.4 10*3/uL (1.3-4.4); LYMPH % 22.1 % (27.0-41.0); MEAN CELL VOLUME 101.7 fl (80.0-94.0); MEAN CORPUSCULAR HGB 31.8 pg (27.0-31.0); MEAN CORPUSCULAR HGB CONC 31.3 g/dl (33.0-37.0); MONO # 0.8 10*3/uL (0.1-1.0); MONO % 12.4 % (3.0-9.0); NEUT # 3.8 10*3/uL (2.3-7.9); PLATELET COUNT AUTOMATED 123 10*3/uL (130-400); RED BLOOD COUNT 4.15 10*6/uL (4.50-5.90); RED CELL DISTRI WIDTH 18.5 % (0-14.5); WHITE BLOOD COUNT 6.1 10*3/uL (4.8-10.8)
[2022-03-11 22:56] LABS: CREATININE 8.59 mg/dL (0.70-1.30); POTASSIUM 5.1 mmol/L (3.5-5.1); TOTAL PROTEIN 7.9 gm/dL (6.4-8.2)
[2022-03-11] MEDS ORDERED: CEPHALEXIN250 MG PO (23:08)
== END 2022-03-11 23:37 | disposition home or self-care (01) ==
LOC: ED 21:49
PROVIDERS: Physician Assistant
DX: L08.9 Local infection of the skin and subcutaneous tissue, unspecified (principal); Z87.891 Personal history of nicotine dependence; Z79.899 Other long term (current) drug therapy